=== PATIENT | male | born 1940 | race Caucasian/White ===

== ENCOUNTER 2020-05-01 18:11 | Emergency (ER) | payer MEDICARE, OTHER, SELFPAY ==
[2020-05-01 18:24] VITALS: BP 120/57; PULSE 86; RESP 17; TEMP 36.1; O2SAT 96; BMI 30.8
--- NOTE | 2020-05-01 18:31 | XR_ITS ---
EXAMINATION: XR CHEST CLINICAL INFORMATION: Cough. COMPARISON: Chest x-ray 10/22/2015 TECHNIQUE: Frontal portable view of the chest was obtained. 6:52 PM FINDINGS: Lungs are clear. No pulmonary vascular congestion. There is no pleural effusion. The heart size is normal. The cardiac and mediastinal contours are normal. There are multilevel degenerative changes of dorsal spine. There is degenerative change of the acromioclavicular joint with bone spurs superiorly at both the right and left shoulder. XR/XR chest 1V IMPRESSION: Unremarkable examination.
--- NOTE | 2020-05-01 19:13 | ED_ITS ---
HPI - URI/Sore Throat General Chief Complaint: Upper Respiratory Symptoms Stated Complaint: COUGH Time Seen by Provider: 05/01/20 18:19 Source: patient Mode of arrival: ambulatory Limitations: no limitations History of Present Illness HPI Narrative: patient presents to ED for coughing for 3 days and body aches. Patient denies any chest pain, shortness of breath, calf pain, or swelling of lower extremities. Patient states his grandson had symptoms 2 days ago and then resolved. MD elicited complaint: cough Related Data Previous Rx's Medication Instructions Recorded benzonatate [Tessalon Perles] 100 mg PO TID PRN #15 cap 05/01/20 Allergies Allergy/AdvReac Type Severity Reaction Status Date / Time crab Allergy Severe ANAPHYLAXIS Unverified 02/08/20 15:52 Review of Systems Constitutional: Constitutional: Reports as per HPI, Reports no additional constitutional complaints and Reports body ache(s) Eyes: Eyes: Reports as per HPI and Reports no additional eye complaints ENT: Reports system reviewed and no additional complaints, except as documented and Reports as per HPI Cardiovascular: Cardiovascular: Reports as per HPI, Reports no additional cardiovascular complaints, Denies chest pain, Denies chest pain at rest, Denies chest pain with activity, Denies dyspnea on exertion, Denies orthopnea and Denies paroxysmal nocturnal dyspnea Respiratory: Respiratory: Reports as per HPI, Reports no additional respiratory complaints, Reports cough and Denies dyspnea on exertion Gastrointestinal: Gastrointestinal: Reports as per HPI and Reports no additional gastrointestinal complaints Genitourinary: Genitourinary: Reports no additional male genitourinary complaints and Reports as per HPI Musculoskeletal: Musculoskeletal: Reports no additional musculoskeletal complaints and Reports as per HPI Neurologic: Reports system reviewed and no additional complaints, except as documented and Reports as per HPI Psychiatric: Psychiatric: Reports no additional psychiatric complaints and Reports as per HPI [facility] Social History Social History Alcohol intake: never Smoked in Last 30 Days: No Use of substances other than those prescribed or required for medical reasons: No Advance Directives: No Advance Directives Information Provided: No Physical Exam Vital Signs: Vital Signs: Last Vital Signs Temp 97 F 05/01/20 18:24 Pulse 86 05/01/20 18:24 Resp 17 05/01/20 18:24 BP 120/57 L 05/01/20 18:24 Pulse Ox 96 05/01/20 18:24 Body Mass Index 30.8 Const: General: cooperative, healthy appearing, comfortable, no acute distress, well developed, alert and awake Orientation/consciousness: patient oriented x3 HENMT: Head: Yes normal to inspection, Yes No palpable skull fracture present, Yes normocephalic and Yes atraumatic Eyes: General: appearance normal, both eyes and all related structures Neck: Neck: Yes normal visual inspection, Yes full ROM, Yes no lymphadenopathy, Yes no meningeal signs, Yes trachea midline, Yes supple and No tender Chest: Chest palpation & inspection: normal inspection of the chest, normal palpation of entire chest wall and no localized rib tenderness Resp: Effort & Inspection: normal respiratory effort and able to speak in complete sentences Auscultation: clear to auscultation bilaterally Cardio: Jugular venous distension: no JVD Heart sounds: S1 normal heart sound present and S2 normal heart sound present GI: Inspection: Yes normal to inspection and No abdominal wall ecchymosis Palpation (GI): Soft to palpation, not firm, nontender, no guarding and not ri gid : General: No CVA tenderness and Yes no CVA tenderness Back/Spine/Pelvis: Back: no CVA tenderness, No CVA tenderness and No back tenderness Skin: General skin exam: no rashes or lesions noted Neuro: General: patient oriented x3, gait normal, tone normal, no meningeal signs and CN's II-XI intact bilaterally Cranial nerves: Yes CN's II-XII intact bilaterally Extrem: Other: Negative for any swelling, pitting edema, calf pain, or redness. Pulses are intact. General: Yes normal to inspection and Yes full ROM Psych: Appearance: grossly normal, well kempt and not disheveled Course Course Course Narrative: History physical exam indicate URI. Patient will be swabbed for COVID-19 and had chest x-ray done. Reevaluation(s) Reevaluation #1: Chest x-ray negative for pneumonia. Patient educated on self-isolation. Patient is safe to be discharged Time: 19:18 MDM - URI/Sore Throat MDM Narrative Medical decision making narrative: URI Discharge Plan Discharge Clinical Impression: Upper respiratory infection Patient Disposition: Home, Self-Care Instructions: Upper Respiratory Infection (ED) Additional Instructions: return to ED for any chest pain, shortness of breath, swelling of lower extremities, weakness, coughing up blood, or any other concerning symptoms. Recommend 14 days self-isolation if COVID test come back positive. Prescriptions: New benzonatate [Tessalon Perles] 100 mg capsule 100 mg PO TID PRN (Reason: cough) Qty: 15 RF: 0 Referrals: Mihir Mccall MD [Primary Care Provider] - 2 days ( URI. Chest x-ray normal. COVID testing pending) Interventions: ED Discharge Assessment Last Done: 05/01/20 19:29 Discharge Date/Time: 05/01/20 19:38 Print Language: Wallisian
== END 2020-05-01 19:38 | disposition home or self-care (01) ==
PROVIDERS: Physician Assistant; Emergency Provider Emergency Medicine; PCP Internal Medicine
DX: J06.9 Acute upper respiratory infection, unspecified (principal); Z20.828 Contact with and (suspected) exposure to other viral communicable diseases
CPT/HCPCS: 71045; 99283; 99284; U0003

== ENCOUNTER 2020-07-02 07:29 | Outpatient (REF) | payer MEDICARE, OTHER, SELFPAY ==
[2020-07-02 11:38] LABS: Estimated Average Glucose 166 mg/dL; Hemoglobin A1c % 7.4 %
[2020-07-02 12:03] LABS: Glucose Fasting 161 mg/dL (60-99)
== END 2020-07-02 07:30 | disposition home or self-care (01) ==
LOC: HO.HMGCLDS 07:29
PROVIDERS: PCP Internal Medicine; Visit Provider Internal Medicine
DX: E11.9 Type 2 diabetes mellitus without complications (principal)
CPT/HCPCS: 36415; 82947; 83036

== ENCOUNTER 2020-08-02 10:06 | Outpatient (REF) | payer SELFPAY | END 2020-08-02 10:07 | disposition home or self-care (01) | LOC: HO.HAP 10:06 | PROVIDERS: Visit Provider Internal Medicine | DX: Z46.1 Encounter for fitting and adjustment of hearing aid (principal); H90.3 Sensorineural hearing loss, bilateral | CPT/HCPCS: 99499 ==

== ENCOUNTER 2020-09-23 08:55 | Emergency (ER) | payer MEDICARE, OTHER, SELFPAY ==
[2020-09-23 08:59] VITALS: BP 136/53; PULSE 82; RESP 16; TEMP 36.1; O2SAT 98; BMI 29.4
--- NOTE | 2020-09-23 10:25 | ED_ITS ---
HPI - General Adult General Chief complaint: Extremity Problem Stated complaint: hand numbness Time Seen by Provider: 09/23/20 10:23 Source: patient and family (Daughter) Mode of arrival: ambulatory Limitations: no limitations History of Present Illness HPI narrative: 79-year-old male came in for evaluation of bilateral hand numbness. Started on the left hand about 3 weeks ago with numbness of the hand usually in the morning time then as day goes on improve, woke up this morning with bilateral hand numbness which is improving, patient reportedly electrical shooting sensation to both arms and shoulder and both sides of the neck if he hyperextends both wrists. Patient declined using repetitive movement of the wrist, no strenuous activity recently. No chest pain. Related Data Previous Rx's Medication Instructions Recorded benzonatate [Tessalon Perles] 100 mg PO TID PRN #15 cap 05/01/20 Allergies Allergy/AdvReac Type Severity Reaction Status Date / Time crab Allergy Severe ANAPHYLAXIS Unverified 02/08/20 15:52 Review of Systems Review of Systems: All other systems are reviewed and are negative Constitutional: Reports as per HPI and Reports no additional constitutional complaints Eyes: Reports as per HPI and Reports no additional eye complaints Reports system reviewed and no additional complaints, except as documented Cardiovascular: Reports as per HPI and Reports no additional cardiovascular complaints Respiratory: Reports as per HPI and Reports no additional respiratory complaints Gastrointestinal: Reports as per HPI and Reports no additional gastrointestinal complaints Genitourinary: Reports no additional female genitourinary complaints Musculoskeletal: Reports no additional musculoskeletal complaints Skin/Breast: Reports system reviewed and no additional complaints, except as docu Psychiatric: Reports no additional psychiatric complaints Endocrine: Reports no additional endocrine complaints Hematologic/Lymphatic: Reports no additional hematologic/lymphatic complaints Allergic/Immunologic: Reports no additional allergic/immunologic complaints Reports system reviewed and no additional complaints, except as documented and Reports Abnormal speech present COUNT INCLUDES THE [facility] Social History Social History Alcohol intake: never Smoking Status: Never smoker Use of substances other than those prescribed or required for medical reasons: No Advance Directives: No Advance Directives Information Provided: No Physical Exam Vital Signs: Vital Signs: Last Vital Signs Temp 97.0 F 09/23/20 08:59 Pulse 70 09/23/20 11:23 Resp 18 09/23/20 11:23 BP 117/64 09/23/20 11:23 Pulse Ox 98 09/23/20 11:23 Body Mass Index 29.4 Vital signs have been reviewed as appeared to be correct. Blood pressure normal. Heart rate normal. Respiration rate normal. Temperature normal. Oxygen saturation normal. Appearance: Alert. Oriented X3. No acute distress. Head: Normal external exam. Normocephalic. Atraumatic. No Marc signs noted. No raccoon eyes noted Eyes: PERRLA. EOMI. Conjunctiva and sclera normal. Eyelids normal. ENT: TM's Normal. Pharynx normal. Uvula midline. Moist mucous membranes. No trismus noted. No drooling noted. No muffled voice noted. Neck: Normal inspection. Neck supple. FROM. No adenopathy. Thyroid Normal. No meningeal signs. No neck mass noted. CVS: Normal heart rate and rhythm. Heart sound normal. No murmurs noted. Pulses normal throughout. Respiratory: No respiratory distress. Painless inspiration. Breath sounds normal. No wheezes/rales/rhonchi noted. Chest nontender. No accessory muscle usage noted or decreased air movement noted. Abdomen: Soft and nontender. Bowel sounds normal in all 4 quadrants. No distention noted. No organomegaly noted. No visible injury noted. Back: No CVA tenderness. Full range of motion noted. Skin: Skin warm and dry. Normal skin color. Normal skin turgor. No rashes/lesions/lacerations noted. Extremities: No lower extremity edema. Extremities exhibit normal range of motion. Extremities nontender. Tinel's test tapping on the median nerve while the wrist is hyper extended at 60 degree induce no tenderness, Phalen's test also was negative when wrist has been flex it for 60 seconds did not change his symptoms. Neuro: Oriented X 3. No motor deficit. No sensory deficit. Reflexes normal. NIH Stroke Scale Level of Consciousness: Alert Level of Consciousness Questions: Answers both questions correctly Level of Consciousness Commands: Performs both tasks correctly Best Gaze: Normal Visual: No visual loss Facial Palsy: Normal Motor Arm (Right): No drift Motor Arm (Left): No drift Motor Leg (Right): No drift Motor Leg (Left): No drift Limb Ataxia: Absent Sensory: Normal Best Language: No aphasia Dysarthia: Normal Extinction and Inattention: No abnormality Score: 0 Course Course Course Narrative: 79-year-old male came in with bilateral hand numbness, exam was consistent with cervical radiculopathy, patient eloped from the emergency department before my full evaluation, patient have an appointment with his surgical specialty center doctor tomorrow. Medical Decision Making Lab Data Lab results reviewed: Yes I reviewed the patient's lab results. Result diagrams: 09/23/20 11:41 09/23/20 11:41 Labs: Lab Results 09/23/20 09/23/20 Range/Units 11:41 11:41 WBC 7.6 (4.8-10.8) X10*3/uL RBC 5.05 (4.60-5.80) X10*6/uL Hgb 15.2 (14.0-18.0) g/dl Hct 44.5 (42-52) % MCV 88.1 (80-98) fL MCH 30.1 (27.0-33.0) pg MCHC 34.2 (31.0-36.0) g/dl RDW 12.9 (11.0-16.0) % Plt Count 139 L (160-400) X10*3/uL MPV 12.2 (9.4-12.4) fL Immature Gran % (Auto) 0.3 (0.0-0.4) % Neut % (Auto) 61.4 (45-73) % Lymph % (Auto) 25.7 (20-40) % Bollinger % (Auto) 8.9 (2-11) % Eos % (Auto) 2.9 (0-4) % Baso % (Auto) 0.8 (0-2) % Lymph # (Auto) 1.9 (1.2-4.9) X10*3/uL Bollinger # (Auto) 0.7 (0.1-1.2) X10*3/uL Eos # (Auto) 0.2 (0.0-0.4) X10*3/uL Baso # (Auto) 0.1 (0.0-0.2) X10*3/uL Abs Immat Gran (auto) 0.02 (0.00-0.03) X10*3/uL Absolute Neuts (auto) 4.7 (2.0-8.3) X10*3/uL Absolute Nucleated RBC 0.000 (0.0-0.012) X10*3/uL Nucleated RBC % (auto) 0.0 (0.0-0.2) /100WBC Sodium 138 (135-145) mmol/L Potassium 4.5 (3.3-5.1) mmol/L Chloride 101 (96-108) mmol/L Carbon Dioxide 31 H (22-29) mmol/L Anion Gap 11 L (12-20) BUN 28 H (9-16) mg/dL Creatinine 1.00 (0.5-1.4) mg/dL Estim Creat Clear Calc 69.7 Estimated GFR > 60 Fasting Glucose 186 H (60-99) mg/dL Calcium 10.0 (8.4-10.2) mg/dL Total Bilirubin 1.2 H (0.0-1.0) mg/dL AST 19 (5-37) U/L ALT 15 (0-40) U/L Alkaline Phosphatase 62 (39-117) U/L Total Protein 6.4 L (6.5-8.0) g/dL Albumin 4.0 (3.5-5.0) g/dL Discharge Plan Discharge Clinical Impression: Paresthesia Patient Disposition: Elopement Prescriptions: No Action benzonatate [Tessalon Perlgilberto] 100 mg capsule 100 mg PO TID PRN (Reason: cough) Qty: 15 RF: 0
[2020-09-23 11:23] VITALS: BP 117/64; PULSE 70; RESP 18; O2SAT 98
--- NOTE | 2020-09-23 11:25 | PC.NURSE ---
no unilat neuro deficits. pt describing shocking sensation BUE when pushing or exerting force. denies headaches. a fib on monitor. skin pwd. liliya CP/SOB. had covid april.
[2020-09-23 11:45] LABS: MANUAL DIFF FLAG NO
[2020-09-23 12:02] LABS: Basophils Absolute Auto 0.1 X10*3/uL (0.0-0.2); Basophils Percent Auto 0.8 % (0-2); Eosinophils Absolute Auto 0.2 X10*3/uL (0.0-0.4); Eosinophils Percent Auto 2.9 % (0-4); Hematocrit 44.5 % (42-52); Hemoglobin 15.2 g/dl (14.0-18.0); Imm Gran Abs Auto 0.02 X10*3/uL (0.00-0.03); Imm Gran Pct Auto 0.3 % (0.0-0.4); Lymphocytes Absolute Auto 1.9 X10*3/uL (1.2-4.9); Lymphocytes Percent Auto 25.7 % (20-40); Mean Corpuscular HGB Conc 34.2 g/dl (31.0-36.0); Mean Corpuscular Hemoglobin 30.1 pg (27.0-33.0); Mean Corpuscular Volume 88.1 fL (80-98); Mean Platelet Volume 12.2 fL (9.4-12.4); Monocytes Absolute Auto 0.7 X10*3/uL (0.1-1.2); Monocytes Percent Auto 8.9 % (2-11); Neutrophils Absolute Auto 4.7 X10*3/uL (2.0-8.3); Neutrophils Percent Auto 61.4 % (45-73); Platelet Count 139 X10*3/uL (160-400); Red Blood Count 5.05 X10*6/uL (4.60-5.80); Red Cell Distribution Width 12.9 % (11.0-16.0); White Blood Count 7.6 X10*3/uL (4.8-10.8)
[2020-09-23 12:14] LABS: Alanine Aminotransferase 15 U/L (0-40); Alkaline Phosphatase 62 U/L (39-117); Anion Gap 11 (12-20); Aspartate Amino Transferase 19 U/L (5-37); Bilirubin Total 1.2 mg/dL (0.0-1.0); Blood Urea Nitrogen 28 mg/dL (9-16); Carbon Dioxide 31 mmol/L (22-29); Chloride 101 mmol/L (96-108); Creatinine Clr Calc Pharmacy 69.7; Estimated Glomerular Filt Rate > 60; Glucose Fasting 186 mg/dL (60-99); Potassium 4.5 mmol/L (3.3-5.1); Sodium 138 mmol/L (135-145); Total Protein 6.4 g/dL (6.5-8.0)
[2020-09-23 13:45] LABS: Erythrocyte Sedimentation Rate 2 MM/HR (0-15)
== END 2020-09-23 13:00 | disposition left against medical advice (07) ==
PROVIDERS: Emergency Provider Emergency Medicine; PCP Internal Medicine
DX: R20.2 Paresthesia of skin (principal); Z86.16 Personal history of COVID-19
CPT/HCPCS: 36415; 80053; 85025; 85652; 99283; 99284

== ENCOUNTER 2020-09-27 19:35 | Outpatient (REF) | payer MEDICARE, OTHER, SELFPAY ==
--- NOTE | ~2020-09-27 | MR_ITS ---
MR CERVICAL SPINE WITHOUT CONTRAST CLINICAL INFORMATION: Cervical disc disorder, C5-C6 level with radiculopathy. COMPARISON: None available. TECHNIQUE: MRI of the cervical spine was obtained using routine sequences without contrast. FINDINGS: Straightening of the cervical lordosis. Mild anterior subluxation of C4 on C5 and C7 on T1. There is moderate disc volume loss at C6-C7. Multilevel endplate osteophytes. There is bone marrow edema within the left C4 and C5 facets that is most likely degenerative or inflammatory. No additional bone marrow edema. No acute fractures. Craniocervical junction is unremarkable. The cervical arterial flow voids are maintained. No significant extraspinal soft tissue findings. C2-C3: Slight annular disc bulge. Advanced left facet arthropathy result in mild left foraminal encroachment. C3-C4: Broad-based right paracentral disc protrusion and ligamentum flavum thickening result in moderate to severe right-sided central canal stenosis. Advanced uncovertebral joint hypertrophy and hypertrophic facet arthropathy result in severe right-sided foraminal stenosis. C4-C5: Broad-based central disc protrusion and ligamentum flavum thickening result in severe central canal stenosis and significant compression of the cervical spinal cord. Possible mild intramedullary T2 signal changes within the cord at this level. C5-C6: Disc osteophyte and ligamentum flavum thickening result in mild narrowing of the central canal. multifactorial degenerative changes result in severe right-sided foraminal stenosis. C6-C7: Disc osteophyte mildly narrows the central canal. Uncovertebral joint hypertrophy and hypertrophic facet arthropathy result in severe bilateral foraminal stenosis. C7-T1: Disc contour is normal. No central canal stenosis and no foraminal stenosis. MR/MR cervical spine wo con IMPRESSION: - At C4-C5, a broad-based central disc protrusion and multifactorial degenerative changes result in severe central canal stenosis, significant compression of the cervical spinal cord, and severe bilateral foraminal stenosis. Possible mild intramedullary T2 signal changes within the cord at this level. - At C3-C4, advanced multifactorial degenerative changes result in moderate to severe right-sided central canal stenosis, mass effect on the right cord, and severe right-sided foraminal stenosis. - Advanced spondylitic changes also result in severe right C5-C6 and severe bilateral C6-C7 foraminal stenosis. Covering provider paged with these findings at 11:02 AM on 09/29/2020.
== END 2020-09-27 19:36 | disposition home or self-care (01) ==
LOC: HO.MRI 19:35
PROVIDERS: Visit Provider Internal Medicine
DX: M50.122 Cervical disc disorder at C5-C6 level with radiculopathy (principal)
CPT/HCPCS: 72141

== ENCOUNTER 2021-07-08 07:32 | Outpatient (REF) | payer MEDICARE, OTHER, SELFPAY ==
[2021-07-08 10:48] LABS: Estimated Average Glucose 192 mg/dL; Hemoglobin A1c % 8.3 %
[2021-07-08 11:05] LABS: Alanine Aminotransferase 17 U/L (0-40); Albumin Level 4.1 g/dL (3.5-5.0); Alkaline Phosphatase 70 U/L (39-117); Aspartate Amino Transferase 18 U/L (5-37); Bilirubin Direct 0.4 mg/dL (0.0-0.5); Bilirubin Total 1.1 mg/dL (0.0-1.0); Cholesterol 128 mg/dL; Glucose Fasting 215 mg/dL (60-99); HDL Cholesterol 46 mg/dL; LDL Cholesterol Calculated 58 mg/dl; Total Protein 6.5 g/dL (6.5-8.0); Triglycerides 120 mg/dL
== END 2021-07-08 07:33 | disposition home or self-care (01) ==
LOC: HO.10HDL 07:32
PROVIDERS: Visit Provider Internal Medicine
DX: E11.9 Type 2 diabetes mellitus without complications (principal); E78.00 Pure hypercholesterolemia, unspecified
CPT/HCPCS: 36415; 80061; 80076; 82947; 83036

== ENCOUNTER 2022-02-26 10:54 | Outpatient (REF) | payer MEDICARE, OTHER, SELFPAY ==
[2022-02-26 11:57] LABS: Bacteria Urine 2+ (None Seen); Calcium Oxalate Crystals Urine Present; Granular Casts Urine Present; Hyaline Casts Urine 0-2 /LPF (0-2); RBC Urine >20 /HPF (0-2); WBC Urine 0-5 /HPF (0-5)
[2022-02-26 12:03] LABS: Appearance Urine Turbid; Color Urine Red; Glucose Urine UA 100 mg/dL (Negative); Leukocyte Esterase Urine Moderate (2+) (Negative); Nitrite Urine Positive (Negative); UMIC TRIGGER UA YES; Urine Blood Moderate (2+) (Negative); Urine Ketones Negative (Negative); Urine Protein 100 (2+) mg/dL (Neg-Trace)
== END 2022-02-26 10:55 | disposition home or self-care (01) ==
LOC: HO.LNP 10:54
PROVIDERS: Visit Provider Internal Medicine
DX: R31.0 Gross hematuria (principal)
CPT/HCPCS: 81001; 87086

== ENCOUNTER 2022-03-09 15:54 | Outpatient (REF) | payer MEDICARE, OTHER, SELFPAY ==
[2022-03-09 16:07] LABS: Anion Gap 19 (12-20); Carbon Dioxide 23 mmol/L (22-29); Chloride 100 mmol/L (96-108); Glucose Random 213 mg/dL (60-115); Potassium 4.9 mmol/L (3.3-5.1); Sodium 137 mmol/L (135-145)
[2022-03-09 16:29] LABS: Digoxin 0.4 ng/mL (0.8-2.0)
== END 2022-03-09 15:55 | disposition home or self-care (01) ==
LOC: HO.LNP 15:54
PROVIDERS: PCP Internal Medicine; Visit Provider Internal Medicine
DX: Z01.818 Encounter for other preprocedural examination (principal); I48.19 Other persistent atrial fibrillation; I50.9 Heart failure, unspecified; Z79.899 Other long term (current) drug therapy
CPT/HCPCS: 80051; 80162; 82947

== ENCOUNTER 2022-04-03 15:10 | Outpatient (REF) | payer MEDICARE, OTHER, SELFPAY ==
--- NOTE | ~2022-04-03 | CT_ITS ---
EXAMINATION: CT CHEST WITHOUT CONTRAST CLINICAL INFORMATION: Pulmonary nodules. COMPARISON: Chest x-ray 05/01/2020. CT chest 06/28/2012. TECHNIQUE: Multidetector volumetric CT imaging of the chest was done. Axial MIP volume rendering provided. Sagittal and coronal reformatted images were obtained. This CT examination was performed using dose optimization techniques as appropriate, variously including the following: *Automated exposure control *Adjustment of mA and/or kV according to patient size (this includes techniques or standardized protocols for targeted exams where dose is matched to indication/reason for exam; i.e. extremities or head) *Use of iterative reconstruction technique DLP: 198 mGy-cm. FINDINGS: PAPER DELIVERER: Well-expanded lungs. LUNGS: The lungs are well expanded with patchy subpleural ground-glass opacity and subpleural reticulation left upper lobe anterior segment. There mild subpleural reticulation is also visualized in both lower lobes. There is mild loss of left lung volume with ipsilateral mediastinal shift. No acute consolidation, mass or pulmonary nodule seen. MEDIASTINUM: Thyroid lobes are symmetric and normal. The central trachea and the bronchi are widely patent. The heart size and the great vessels are normal caliber. No pericardial effusion seen. CORONARY ARTERY CALCIFICATION: There are mild coronary artery calcifications. PLEURA: There is no pleural effusion. No pleural mass or thickening. AXILLA: No lymphadenopathy. UPPER ABDOMEN: Visualized liver, spleen, pancreas and bilateral adrenal glands are unremarkable. There is a radiopaque foreign body in the upper abdomen which appears to be a staple and intraluminal/duodenum. The gallbladder is unremarkable. OSSEOUS STRUCTURES: Mild ventral spondylosis. No aggressive lytic or sclerotic process. CT/CT chest wo IV con IMPRESSION: 1. No acute consolidation, mass or pulmonary nodule. 2. There is mild loss of left lung volume with ipsilateral mediastinal shift. 3. There is a radiopaque foreign body in the upper abdomen appears to be a staple or intraluminal/duodenum. 4. The lungs are well expanded with patchy subpleural ground-glass opacity and subpleural reticulation left upper lobe anterior segment. Fleischner guidelines were followed.
== END 2022-04-03 15:11 | disposition home or self-care (01) ==
LOC: HO.CT 15:10
PROVIDERS: Visit Provider Internal Medicine
DX: R91.8 Other nonspecific abnormal finding of lung field (principal)
CPT/HCPCS: 71250

== ENCOUNTER 2022-07-29 16:13 | Outpatient (REF) | payer SELFPAY ==
--- NOTE | 2022-07-30 13:53 | MHC.AU.HA3 ---
Hearing Instrument Follow-Up- Binaural Date of Visit: 07/30/22 Right Ear: Zenon, Model, Color, Serial Number: Britni [id number] SN: [id number] Color: Silver Weaver Multi Punch Operator Repair Warranty: 03/16/2020 Multi Punch Operator Loss and Damage Warranty: 03/16/2020 Battery Size: 312 Analytical Lead/Slim Tube: #2 slim tube Earmold/Dome/CShell/SlimTip:Small open dome Dispensed By: [facility] Date of Fittin12/23/2016 Left Ear: Zenon, , Color, Serial Number: Britni [id number] SN: [id number] Color: Silver Weaver Multi Punch Operator Repair Warranty: 03/16/2020 Multi Punch Operator Loss and Damage Warranty: 03/16/2020 Battery Size: 312 Analytical Lead/Slim Tube: #2 slim tube Earmold/Dome/CShell/SlimTip: Small open dome Dispensed By: [facility] Date of Fittin12/23/2016 Follow-Up Summary: Adonay dropped off both hearing aids yesterday reporting intermittency issues. Slim tubes discolored and domes and tubes partially blocked with wax. Cleaned hearing aids. Vacuumed microphones. Replaced slim tubes and wax guards. A listening check demonstrated that the hearing aids are in good working order. Recommendations: Hearing instrument maintenance in 6 months, or sooner if needed. Please contact our clinic with any questions or concerns. Signature: Provider: Pepe Hermosillo, [facility]
== END 2022-07-29 16:14 | disposition home or self-care (01) ==
LOC: HO.HAP 16:13
PROVIDERS: Visit Provider Internal Medicine
DX: Z13.89 Encounter for screening for other disorder (principal)

== ENCOUNTER 2022-08-05 13:28 | Outpatient (REF) | payer SELFPAY | END 2022-08-05 13:29 | disposition home or self-care (01) | LOC: HO.HAP 13:28 | PROVIDERS: Visit Provider Internal Medicine | DX: Z13.89 Encounter for screening for other disorder (principal) ==

== ENCOUNTER 2022-12-04 10:55 | Outpatient (REF) | payer MEDICARE, OTHER, SELFPAY ==
[2022-12-04 11:52] LABS: Blood Urea Nitrogen 24 mg/dL (9-16); Estimated Glomerular Filt Rate > 60; Potassium 4.5 mmol/L (3.3-5.1)
== END 2022-12-04 10:56 | disposition home or self-care (01) ==
LOC: HO.LNP 10:55
PROVIDERS: Visit Provider Internal Medicine
DX: R79.9 Abnormal finding of blood chemistry, unspecified (principal)
CPT/HCPCS: 82565; 84132; 84520

== ENCOUNTER 2023-01-26 11:10 | Outpatient (REF) | payer SELFPAY ==
[2023-01-26 12:21] LABS: Blood Urea Nitrogen 29 mg/dL (9-16); Estimated Glomerular Filt Rate > 60; Potassium 4.2 mmol/L (3.3-5.1)
== END 2023-01-26 11:11 | disposition home or self-care (01) ==
LOC: HO.LNP 11:10
PROVIDERS: Visit Provider Internal Medicine
DX: R79.9 Abnormal finding of blood chemistry, unspecified (principal)
CPT/HCPCS: 82565; 84132; 84520

== ENCOUNTER 2024-01-25 11:56 | Outpatient (REF) | payer SELFPAY ==
[2024-01-25 12:25] LABS: Estimated Average Glucose 140 mg/dL; Hemoglobin A1c % 6.5 % (<6.0)
[2024-01-25 12:32] LABS: Alanine Aminotransferase 101 U/L (0-40); Albumin Level 4.3 g/dL (3.5-5.0); Alkaline Phosphatase 146 U/L (39-117); Aspartate Amino Transferase 82 U/L (5-37); Bilirubin Direct 0.3 mg/dL (0.0-0.5); Bilirubin Total 0.9 mg/dL (0.0-1.0); Cholesterol 127 mg/dL (<200); Glucose Fasting 144 mg/dL (60-99); HDL Cholesterol 49 mg/dL (>40); LDL Cholesterol Calculated 55 mg/dL (<100); Total Protein 7.9 g/dL (6.5-8.0); Triglycerides 119 mg/dL (<150)
[2024-01-25 13:48] LABS: Reflex LDLD? No
== END 2024-01-25 11:57 | disposition home or self-care (01) ==
LOC: HO.LNP 11:56
PROVIDERS: Visit Provider Internal Medicine
DX: E11.9 Type 2 diabetes mellitus without complications (principal); E78.00 Pure hypercholesterolemia, unspecified
CPT/HCPCS: 80061; 80076; 82947; 83036

== ENCOUNTER 2024-01-27 15:00 | Outpatient (REF) | payer SELFPAY | END 2024-01-27 15:01 | disposition home or self-care (01) | LOC: HO.HAP 15:00 | PROVIDERS: Visit Provider Internal Medicine | DX: Z46.1 Encounter for fitting and adjustment of hearing aid (principal); H90.5 Unspecified sensorineural hearing loss | CPT/HCPCS: V5267 ==

== ENCOUNTER 2024-02-14 07:28 | Outpatient (REF) | payer MEDICARE, OTHER, SELFPAY ==
--- NOTE | ~2024-02-14 | CT_ITS ---
EXAMINATION: CT CHEST WITHOUT CONTRAST CLINICAL INFORMATION: Pulmonary fibrosis COMPARISON: 04/03/2022 TECHNIQUE: Multidetector volumetric CT imaging of the chest was done. Axial MIP volume rendering provided. Sagittal and coronal reformatted images were obtained. This CT examination was performed using dose optimization techniques as appropriate, variously including the following: *Automated exposure control *Adjustment of mA and/or kV according to patient size (this includes techniques or standardized protocols for targeted exams where dose is matched to indication/reason for exam; i.e. extremities or head) *Use of iterative reconstruction technique DLP: 206 mGy-cm FINDINGS: LUNGS: Mild emphysematous changes are present throughout the lungs along with mild bronchial thickening. There is subpleural reticulation seen involving most lobes. There is some minimal honeycombing seen in the lingula anteriorly. These changes appear slightly more conspicuous than they did on 04/03/2022. No suspicious lung masses are seen. MEDIASTINUM: The mediastinum is normal. CORONARY ARTERY CALCIFICATION: Extensive PLEURA: There is no pleural effusion. No pleural mass or thickening. AXILLA: No lymphadenopathy. UPPER ABDOMEN: There are a few calcified layering gallstones present OSSEOUS STRUCTURES: Unremarkable. CT/CT chest wo IV con IMPRESSION: 1. Mild emphysematous changes are present with subpleural reticulation and some minimal honeycombing. Findings are suggestive of early pulmonary fibrosis. These findings appear slightly more conspicuous than they did on 04/03/2022. 2. Incidental note made of cholelithiasis. Fleischner guidelines were followed. Electronically signed by: Galo Renae MD 02/14/2024 12:08 PM EDT
== END 2024-02-14 07:29 | disposition home or self-care (01) ==
LOC: HO.CT 07:28
PROVIDERS: PCP Internal Medicine; Visit Provider Internal Medicine
DX: J84.10 Pulmonary fibrosis, unspecified (principal)
CPT/HCPCS: 71250

== ENCOUNTER 2024-03-16 11:49 | Outpatient (REF) | payer MEDICARE, OTHER, SELFPAY ==
[2024-03-16 12:10] LABS: Alanine Aminotransferase 18 U/L (0-40); Albumin Level 3.9 g/dL (3.5-5.0); Alkaline Phosphatase 87 U/L (39-117); Aspartate Amino Transferase 30 U/L (5-37); Bilirubin Direct 0.3 mg/dL (0.0-0.5); Bilirubin Total 0.7 mg/dL (0.0-1.0); Total Protein 6.8 g/dL (6.5-8.0)
== END 2024-03-16 11:50 | disposition home or self-care (01) ==
LOC: HO.LNP 11:49
PROVIDERS: Visit Provider Internal Medicine
DX: E11.9 Type 2 diabetes mellitus without complications (principal)
CPT/HCPCS: 80076

== ENCOUNTER 2024-12-21 07:43 | Outpatient (REF) | payer MEDICARE, OTHER, SELFPAY ==
--- OUTSIDE RECORDS SUMMARY | 2024-12-21 04:00 | XMS_ITS ---
Author Organization iMhir Mccall MD Address [address] [place] [phone] Care Team Providers Care Education Consultant Name Role Phone Mihir Mccall Primary Care Provider REASON FOR VISIT FASTING LIPID, LIVER PANEL Encounters Encounter Location Date Provider Diagnosis Mihir Mccall MD [address] [place] [phone] 12/21/2024 Mihir Mccall Type 2 diabetes julian itus without complication E11.9 and Pure hypercholesterolemia E78.00 Assessments Encounter Date Diagnosis (ICD Code) Assessment Notes Treatment Notes Treatment Clinical Notes Section Notes 12/21/2024 Type 2 diabetes julian itus without complication (ICD-10 - E11.9) 12/21/2024 Pure hypercholesterolemia (ICD-10 - E78.00) Plan Of Treatment Pending Test Test Name Order Date Liver Panel 12/21/2024 Glucose Fasting 12/21/2024 Lipid Panel with Reflex 12/21/2024 Hemoglobin A1c 12/21/2024 Next Appt Details Provider Name:Mihir Phillips ier, 01/04/2025 10:15:00 AM, [address] [facility], [address], [place], [place], [phone], Progress Notes * MAGEDAdonay DDOB:[birth year] (84 yo M)Acc No.[id number]:12/21/2024 Progress Note Patient: Adonay MATA Provider: Iris Mccall MD :1940 A ge:84 Y S ex:Male Date:12/21/2024 Address:[facility] [place], [facility] Subjective: * Chief Complaints: * 1 . FASTING LIPID, LIVER PANEL. * Medical History: Objective: * Vitals: Assessment: * Assessment: 1. T ype 2 diabetes mellitus without complication - E11.9 (Primary) 2 . P ure hypercholesterolemia - E78.00 Plan: * Treatment: 2. P ure hypercholesterolemia L AB: Liver Panel L AB: Glucose Fasting L AB: Lipid Panel with Reflex L AB: Hemoglobin A1c * * The named appointment provid er may or may not be the originator of this progress note, and it is not deemed complete until electronically signed by the appointment provider. Sign off status: Pending * Provider: Iris Mccall MD Date: 0 12/21/2024 Generated for Erasto loya/Anatoliy/Cinthyasmitting on: 0 12/21/2024 07:46 AM EDT
--- OUTSIDE RECORDS SUMMARY | 2024-12-21 07:46 | XMS_ITS | Clinical Summary ---
Author Organization [address] [place] [address] [place] [phone] Phone Care Team Providers Care Pharmacy Tech Name Role Phone Mihir Mccall MD Primary Care Provider [phone] Allergies Active Allergy Reactions Criticality Noted Date Comments Rosuvastatin Pain 06/06/2020 Simvastatin Pain 06/06/2020 Medications atorvastatin (LIPITOR) 40 mg tablet Take 1 tablet (40 mg total) by mouth 1 (one) time each day. Active digoxin (LANOXIN) 125 mcg (0.125 mg) tablet Take 1 tablet (125 mcg total) by mouth 1 (one) time each day. 03/06/2022 Active Eliquis 5 mg tablet Take 1 tablet (5 mg total) by mouth 2 (two) times a day. 02/11/2023 Active metFORMIN (GLUCOPHAGE) 500 mg tablet Take 2 tablets (1,000 mg total) by mouth 2 (two) times a day with meals. Active sildenafiL (VIAGRA) 100 mg tablet Take 1 tablet (100 mg total) by mouth if needed. Active SITagliptin phosphate (Januvia) 50 mg tablet Take 1 tablet (50 mg total) by mouth 1 (one) time each day. Active tamsulosin (FLOMAX) 0.4 mg 24 hr capsule Take 1 capsule (0.4 mg total) by mouth 1 (one) time each day. Take 30 mins after same meal every day Active pantoprazole (PROTONIX) 40 mg EC tablet Take 1 tablet (40 mg total) by mouth 2 (two) times a day. Do not crush, chew, or split. Active furosemide (LASIX) 20 mg tablet Take 1 tablet (20 mg total) by mouth 1 (one) time each day. Active metoprolol succinate (TOPROL-XL) 50 mg 24 hr tablet Take 1 tablet (50 mg total) by mouth 2 (two) times a day. 90 tablet 3 05/05/2024 Active Active Problems Problem Noted Date Diagnosed Date Lumbar stenosis with neurogenic claudication 05/2021 Overview (03/04/2024): Last Assessment & Plan: Patient is 3 weeks s/p L2-3, L4-5 fusion extensions, was autofused at L3-4, has L2-5 pedicle screws. He does feel that he see some improvement in his walking, feels he still is walking slowly. He is experiencing some low back pain, thinks it is more surgical pain in his preop typical back pain. He has chronic left dorsiflexion weakness, otherwise not noting any specific weakness. He is using minimal narcotics, still at times needs oxycodone. Denies fever, wound drainage, sweats chills. Patient has a follow-up appointment with Dr. Garg in 6 weeks with lumbar spine x-rays. All postop questions answered. He will call with any concerns or questions prior to his next visit. Hypertension 06/23/2021 Assessment & Plan (05/05/2024 9:58 AM EST): Blood pressure is well-controlled on current regimen of beta-lizzette and diuretic. Continue current treatment plan Arthritis, rheumatoid ([facility] V24, [facility] V28) 06/06/2020 Claudication ([facility] V24) 06/06/2020 Ischemic cardiomyopathy 06/06/2020 Overview (05/05/2024): Lateral STEMI 09/2016 with thrombectomy to LAD and LCX Possibly embolic from afib LVEF 35-40%, up to 45% with medical therapy in 06/2020 Assessment & Plan (05/05/2024 9:58 AM EST): Currently, the patient is doing well. He is stable from a cardiorespiratory standpoint. He is able to perform all of his typical activities, and in fact, is back to work part-time. He is off of his spironolactone, possibly due to a refill issue. Regardless, since he is doing well, we will start by updating his echocardiogram. If his LVEF has fallen, we can make a consideration for YOLIS/ARB/ARNI and/or resuming MRA. SGLT2 also remains an option for him. He will update me if he has any changes in his current condition. He does report urinary frequency and it is due at least in part to his furosemide. Possible use of ARNI and/or SGLT2 may help with this. Historically, he does not appear to be on YOLIS/ARB/ARNI due to his renal function, but it looked good on last check. Non morbid obesity due to excess calories 2020 Old OR (myocardial infarction) 06/06/2020 Persistent atrial fibrillation ([facility] V24, [facility] V28) 06/06/2020 Overview (05/05/2024): anticoagulated with apixaban Rate control strategy with BB and digoxin Assessment & Plan (05/05/2024 9:58 AM EST): Is well-controlled on current doses of beta-lizzette and digoxin. Update digoxin level at his convenience. Lab slip was given to the patient Premature ventricular contractions 06/06/2020 Primary insomnia 06/06/2020 Prostatism 06/06/2020 Pure hypercholesterolemia 06/06/2020 Assessment & Plan (05/05/2024 9:58 AM EST): Well-controlled lipid profile from 11/2021. Continue statin at current dose. Thrombocytopenia, unspecified ([facility] V24) 05/24 Type II diabetes mellitus ([facility] V24, [facility] V28) 06/06/2020 Resolved Problems Problem Noted Date Diagnosed Date Resolved Date Cardiomyopathy ([facility] V24, [facility] V28) 01/01/2023 05/05/2024 Encounters Date Type Department Care Team Description [address] [facility] [address] [place] [address] Mihir Mccall MD Medical Records [address] [facility] - [address] [place] [address] Kendra Bowers NP records from Last 3 Months Immunizations Name Administration Dates Next Due Influenza trivalent, 0.5mL, preservative free (Fluarix; FluLaval; Fluzone) ages 6mo and older (Afluria) 3 years and older 03/25/2020,01/24/2019,04/01/2018,02/09,02/24/2016 Pneumococcal polysaccharide 23 valent (Pneumovax 23) 2yo and older 01/04/2018 Surgical History Surgery Date Site/Laterality Comments CORONARY STENT PLACEMENT 06/06/2020 Medical History Medical History Date Comments Cardiomyopathy ([facility] V24, [facility] V28) 2022 Hypertension 06/23/2021 Diabetes mellitus ([facility] V24, [facility] V28) Type 2 Pure hypercholesterolemia 06/06/2020 PVC (premature ventricular contraction) 06/06/19 21 Atrial fibrillation ([facility] V24, [facility] V28) 0 06/06/2020 Claudication ([facility] V24) 06/06/2020 Old OR (myocardial infarction) 06/06/2020 Family History Medical History Relation Name Comments Alzheimer's disease Father Diabetes Mother Relation Name Status Comments Father Mother Social History Tobacco Use Types Packs/Day Years Used Date Smoking Tobacco: Former Cigarettes Q uit: 1959 Passive Smoke Exposure: Never Smokeless Tobacco: Never Tobacco Cessation:Counseling Given: Not Answered Alcohol Use Standard Drinks/Week Comments Not Currently 0 (1 standard drink = 0.6 oz pur e alcohol) Sex and Gender Information Value Date Recorded Sex Assigned at Not on file Legal Sex Male 5:54 PM EST Gender Identity Not on file Sexual Orientation Not on file Obstetrics History Last Filed Vital Signs Vital Sign Reading Time Taken Comments Blood Pressure 118/62 05/05/2024 8:38 AM EST Pulse 90 05/05/2024 8:38 AM EST Temperature - - Respiratory Rate - - Oxygen Saturation 96% 05/05/2024 8:38 AM EST Inhaled Oxygen Concentration - - Weight 85.7 kg (189 lb) 05/05/2024 8:38 AM EST Height 177.8 cm (5' 10 ) 05/05/2024 8:38 AM EST Body Mass Index 27.12 05/05/2024 8:38 AM EST Plan of Treatment Upcoming Encounters Date Type Department Care Team (Late st Contact Info) Description 01/17/2025 11:00 AM EDT Ancillary Procedure [facility] - [address] [place] [address] Health Maintenance Due Date Last Done Comments Diabetes: Annual Foot Exam 11[birth year]07/1950 Diabetes: Annual Retina Eye Exam 11/07/1950 DTaP,Tdap,and Td Vaccines (1 - Tdap) 1960 Zoster Vaccines (1 of 2) 11/07/1991 RSV Immunization Adult Patients (1 - 1-dose 75+ series) 2016 Falls Risk Assessment 05/02/2022 Medicare Annual Wellness Visit 05/02/2022 Social Influencers of Health Screening 05/02/2022 Diabetes: Annual Urine Albumin-Creatinine Ratio (uACR) 05/09/2022 Diabetes: Blood Sugar Control Test (HGBA1C) 05/09/2022 COVID-19 Vaccine ( season) 2024 08/09/2020, 07/18/2020 Depression Screening 05/24/2024 Diabetes: Annual GFR (Glomerular Filtration Rate) 12/14/2024 12/15/2023, 12/15/2023, 10/06/2018, Additional history exists Hypertension/CHF/CAD Annual BMP Blood Test 12/14/2024 12/15/2023, 12/15/2023, 10/06/2018, Additional history exists Influenza Vaccine (#1) 2025 , 02/02/2023, 02/19/2022, Additional history exists Cholesterol Screening (Lipid Panel) 12/12/2026 12/12/2021 Pneumococcal Vaccine: 50+ Years Completed 01/04/2018, 10/01/2016 HIB Vaccines Aged Out No longer eligi ble based on patient's age to complete this topic HPV Vaccines Aged Out No longer eligi ble based on patient's age to complete this topic Hepatitis A Vaccines Aged Out No long er eligible based on patient's age to complete this topic Hepatitis B Vaccines Aged Out No long er eligible based on patient's age to complete this topic IPV Vaccines Aged Out No longer eligi ble based on patient's age to complete this topic MMR Vaccines Aged Out No longer eligi ble based on patient's age to complete this topic Meningococcal ACWY Vaccine Aged Out N o longer eligible based on patient's age to complete this topic Meningococcal B Vaccine Aged Out No l onger eligible based on patient's age to complete this topic RSV Immunization Patients Under 20 months Aged Out No longer eligible based on patient's age to complete this topic Varicella Vaccines Aged Out No longer eligible based on patient's age to complete this topic Procedures Procedure Name Priority Date/Time Associated Diagnosis Comments ANNUAL BMP BLOOD TEST Routine 12/15/2023 LIPID PANEL Routine 12/12/2021 from Last 3 Months or Most Recently Relevant to Health Maintenance Results * Annual BMP Blood Test (12/15/2023) Annual BMP Blood Test abstracted Historical Provider HEALTH MAINTENANCE Final Result * (ABNORMAL) Lipid panel (12/12/2021) LDL/HDL Ratio 2 0 - 4 Triglycerides 193(A) 0 - 150 mg/dL Cholesterol 131 0 - 200 mg/dL HDL 55 >=40 mg/dL LDL Cholesterol 38 0 - 100 mg/dL Blood Venous blood specimen / Unknown Historical Provider LAB BLOOD ORDERABLES Galina l Result from Last 3 Months or Most Recently Relevant to Health Maintenance [facility] Care Teams Pharmacy Tech Relationship Specialty Start Date End Date Mihir Mccall MD PCP - General Internal Medicine 04/29/20
--- OUTSIDE RECORDS SUMMARY | 2024-12-21 07:46 | XMS_ITS | Clinical Summary ---
Author Organization [facility] Address [address] [place] [address] Phone Care Team Providers Care Portfolio Assistant Name Role Phone Unavailable Primary Care Provider Unavailabl e Allergies No known active allergies Social History Tobacco Use Types Packs/Day Years Used Date Smoking Tobacco: Former Cigarettes Smokeless Tobacco: Never Tobacco Cessation:Counseling Given: Not Answered Alcohol Use Standard Drinks/Week Comments Never 0 (1 standard drink = 0.6 oz pur e alcohol) Sex and Gender Information Value Date Recorded Sex Assigned at Not on file Legal Sex Male 8:57 AM EDT Gender Identity Not on file Sexual Orientation Not on file Plan of Treatment Health Maintenance Due Date Last Done Comments Pneumococcal Vaccine: 50+ Ye ars (2 of 2 - PCV20 or PCV21) 10/01/2017 10/01/2016 Diabetes: Hemoglobin A1C 03/22/2022 Diabetes: Ophthalmology Exam 03/22/2022 Diabetes: Pedal Pulse Checked 03/22/2022 Diabetes: Sensory Foot Exam 03/22/2022 Diabetes: Visual Foot Exam 03/22/2022 Influenza Vaccine (#1) 2025 04/07/2018 Hepatitis B Vaccine Aged Out No longe r eligible based on patient's age to complete this topic Insurance Medicare [facility] Medicare [facility]
--- OUTSIDE RECORDS SUMMARY | 2024-12-21 07:46 | XMS_ITS | Clinical Summary ---
Author Organization [facility] Address [address] [address] Phone Care Team Providers Care Cigar Maker Name Role Phone Mihir Mccall MD Primary Care Provider Heather Perry MD Unavailable [phone] Ramírez Morales MD, MPH Unavailable [phone] Allergies No known active allergies Medications apixaban (ELIQUIS) 5 mg tablet Take 5 mg by mouth 2 (two) times a day. Active lisinopril (PRINIVIL,ZESTRIL ) 5 MG tablet Take 5 mg by mouth daily. Active atorvastatin (LIPITOR) 40 MG tablet Take 40 mg by mouth daily. Active tamsulosin (FLOMAX) 0.4 mg Cp24 Take 0.4 mg by mouth 2 (two) times a day. Active metoprolol succinate (TOPROL-XL) 50 MG 24 hr tablet Take 50 mg by mouth 2 (two) times a day. Active metFORMIN (GLUCOPHAGE) 500 MG tablet Take 1,000 mg by mouth 2 (two) times a day with meals. Active therapeutic multivitamin tablet Take 1 tablet by mouth daily. Active SITagliptin (JANUVIA) 50 MG tablet Take 50 mg by mouth daily. Active furosemide (LASIX) 20 MG tablet TAKE 1 TABLET BY MOUTH EVERY DAY 90 tablet 3 12/18/2019 Active digoxin (LANOXIN) 250 mcg (0.25 mg) tablet TAKE 1 TABLET BY MOUTH EVERY DAY 90 tablet 2 03/08/2020 Active spironolactone (ALDACTONE) 25 MG tablet TAKE 1 TABLET (25 MG TOTAL) BY MOUTH 3 (THREE) TIMES A WEEK ON WEDNESDAY, WEDNESDAY, WEDNESDAY. 36 tablet 06/14/2020 Active Active Problems Problem Noted Date Diagnosed Date Uncoded recurrent back pain 03/03/2007 Overview (07/13/2014): recurrent back pain Immunizations Immunization Administration Dates Next Due Influenza High-Dose Trivalent Preservative Free IM 04/07/2018 Social History Tobacco Use Types Packs/Day Years Used Date Smoking Tobacco: Former Smokeless Tobacco: Former Alcohol Use Standard Drinks/Week Comments No 0 (1 standard drink = 0.6 oz pur e alcohol) Education Answer Date Recorded Are you interested in more education? Not on marisel e 09/27/2022 Are you concerned about learning? Not on file 09/27/2022 No 09/27/2022 No 09/27/2022 Digital Access Answer Date Recorded No 10/13/2022 No 10/13/2022 No 10/13/2022 Reliable internet access at home? Not on file 10/13/2022 Device with a working camera? Not on file Sex and Gender Information Value Date Recorded Sex Assigned at Male 04/28/2022 5:36 PM EST Legal Sex Male 6:40 PM EST Gender Identity Male 04/28/2022 5:36 PM EST Sexual Orientation Straight 04/28/2022 5: 36 PM EST Last Filed Vital Signs Vital Sign Reading Time Taken Comments Blood Pressure 127/63 05/21/2022 1:40 PM EST Pulse 102 05/21/2022 1:40 PM EST Temperature 36.8 C (98.3 F) 05/21/2022 1:39 PM EST Respiratory Rate 18 05/21/2022 1:40 PM EST Oxygen Saturation 96% 05/21/2022 1:40 PM EST Inhaled Oxygen Concentration - - Weight 84.1 kg (185 lb 6.5 oz) 05/21/2022 1:40 P M EST Height 174.7 cm (5' 8.78 ) 05/21/2022 1:40 PM ES T Body Mass Index 27.56 05/21/2022 1:40 PM EST Plan of Treatment Health Maintenance Due Date Last Done Comments Adult Td,Tdap Booster 1940 DEPRESSION SCREENING 1953 ZOSTER VACCINES (1 of 2) 11/07/1991 RSV VACCINE (1 - 1-dose 75+ series) 2016 CREATININE LEVEL 05/22/2020 05/22/2019, , 04/07/2018, Additional history exists POTASSIUM LEVEL 05/22/2020 05/22/2019, 09/21, 04/07/2018, Additional history exists COVID-19 VACCINE ( season) 2024 08/09/2020, 07/18/2020 PNEUMOCOCCAL VACCINES (50+ years) Completed 01/04/2018, 10/01/2016 HEPATITIS A VACCINES Aged Out No long er eligible based on patient's age to complete this topic HIB VACCINES Aged Out No longer eligi ble based on patient's age to complete this topic MENINGOCOCCAL VACCINES (ACWY) Aged Out No longer eligible based on patient's age to complete this topic MENINGOCOCCAL VACCINES (B) Aged Out N o longer eligible based on patient's age to complete this topic Medical Devices Not on file Procedures Procedure Name Priority Date/Time Associated Diagnosis Comments BASIC METABOLIC PANEL Routine 05/22/2019 3:55 PM EST Dyspnea on exertion Dilated cardiomyopathy Chronic systolic congestive heart failure from Last 3 Months or Most Recently Relevant to Health Maintenance Results * (ABNORMAL) Basic metabolic panel (05/22/2019 3:55 PM EST) SODIUM 141 136 - 145 mmol/L [address] [place] [address] LAB POTASSIUM 3.8 3.4 - 5.1 mmol/L [address] [place] [address] LAB CHLORIDE 101 98 - 107 mmol/L [address] [place] [address] LAB CO2 26 22 - 31 mmol/L [address] [place] [address] LAB BUN 20 6 - 23 mg/dL [address] [place] [address] LAB CREATININE 0.79 0.50 - 1.20 mg/dL [address] [place] [address] LAB GLUCOSE 174(H) 70 - 100 mg/dL [address] [place] [address] LAB CALCIUM 9.6 8.8 - 10.7 mg/dL [address] [place] [address] LAB EGFR 87 >59 mL/min/1.[address] [place] [address] LAB Comment:If patient is black, multiply result by 1.159. Estimated glomerular filtration rate calculated using the CKD-EPI equation. ANION GAP 14 7 - 17 mmol/L [address] [place] [address] LAB 05/22/2019 3:55 PM EST 05/22/2019 4:39 PM EST Edwin Delgado MD, MPH LAB BLOOD ORDERABLES Final Result [address] [facility] [address] [place] [address] from Last 3 Months or Most Recently Relevant to Health Maintenance Insurance MEDICARE PART A & B Member Subscriber Plan / Payer (Ef fective 2006-Present) Name:Adonay Méndez Member ID:[id number] Relation to Subscriber:Self Name:Adonay Méndez Subscriber ID:[id number] Payer ID:[id number] Group ID:Not on file Type:Medicare Address: [employer] [facility] [employer] [facility] [address] [facility] [place] [address] [facility] MEDICARE SUPPLEMENT MEDICARE PART A & B [employer] MEDICARE SUPPLEMENT MEDICARE PART A & B [employer] MEDICARE SUPPLEMENT MEDICARE PART A & B [place] MEDICARE SUPPLEMENT MEDICARE PART A & B [place] MEDICARE SUPPLEMENT MEDICARE PART A & B [facility] MEDICARE SUPPLEMENT MEDICARE PART A & B [facility] [employer] MEDICARE SUPPLEMENT MEDICARE PART A & B [facility] [employer] MEDICARE SUPPLEMENT MEDICARE PART A & B [employer] [place] [phone] MEDICARE PART A & B [employer] MEDICARE SUPPLEMENT Care Teams Cigar Maker Relationship Specialty Start Date End Date Mihir Mccall MD [address] [place] [address] [place] [address] PCP - General 11/21/13 Heather Perry MD [address] [place] [email or web address] 05/01/22 Ramírez Morales MD, MPH [address] [place] [email or web address] 05/01/22 Additional Source Comments The information contained in this document represents components of the legal health record. It is not the complete legal health record.[facility]
--- OUTSIDE RECORDS SUMMARY | 2024-12-21 07:46 | XMS_ITS | Patient Health Record ---
Author Organization [facility] Address [address] [place] [address] Care Team Providers Care Clinical Data Management Manager Name Role Phone Stefany CONLEY, Mihir Primary Care Provider Terri Bettencourt Jr, Jose Unavailable Reason For Referral No Information Medications Medication SIG (Take, Route, Fr equency, Duration) Notes Start Date End Date Status Naproxen 500 MG 1 tablet Orally once or twice a day Active metFORMIN HCl 500 MG 1 tablet with meals Orally Twice a day Active Problems Problem Type SNOMED Code ICD Code Onset Dates Problem Status W/U Status Risk Notes Problem 191241254 Encounter for screening for malignant neoplasm of colon (Z12.11) Active confirmed Problem 397162569 History of adenomatous polyp of colon (Z86.010) Active confirmed Problem Encounter for screening for malignant neoplasm of rectum (Z12.12) Active confirmed Problem 18039313 Change in bowel function (R19.4) Active confirmed Plan Of Treatment Future Test Test Name Order Date COLONOSCOPY 06/26/2015 Insurance Providers Payer Name Payer Address Payer Phone Subscriber Number Group Number Insured Name Patient Relationship to Insured Coverage Start Date Coverage End Date MEDICARE OF [place] [address] [place] [address] [phone] [id number] ELMA LYNNE Self - patient is the insured [facility] TH INDEMNITY [address] [place] [address] [id number] ELMA LYNNE Self - patient is the insured Medical (General) History Medical History History ICD Code NIDDM Denies HI,,CVA,Lung disease,renal diseas e 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 Weaver--the lesion could not be removed entirely endoscopically and it was resected surgically as below---F/U colonoscopy in 09/[address] Weaver Kfrscerjt07/2015--treated with temporary course of prednisone and NSAIDs SBO in 2013--no surgery Surgical History Surgery Date(Month/Year) appendectomy-age 14 back surgery lumbar Sigmoid lesion removed by [place]oid [place] [facility] [place]12 days later had a SBO and had [place] [facility] [place]--resection of 56cm of SI 07/03/2008
[2024-12-21 09:52] LABS: Hemoglobin A1C 105.1024 umol/L; Total Hemoglobin (HGBA1C) 2486.4827 umol/L
[2024-12-21 10:01] LABS: Alanine Aminotransferase 23 U/L (0-40); Albumin Level 4.3 g/dL (3.5-5.0); Alkaline Phosphatase 162 U/L (39-117); Aspartate Amino Transferase 42 U/L (5-37); Cholesterol 104 mg/dL (<200); HDL Cholesterol 51 mg/dL (>40); Total Protein 7.3 g/dL (6.5-8.0); Triglycerides 78 mg/dL (<150)
[2024-12-21 11:10] LABS: Reflex LDLD? No
== END 2024-12-21 07:44 | disposition home or self-care (01) ==
LOC: HO.10HDL 07:43
PROVIDERS: Visit Provider Internal Medicine
DX: E11.9 Type 2 diabetes mellitus without complications (principal); E78.00 Pure hypercholesterolemia, unspecified
CPT/HCPCS: 36415; 80061; 80076; 82947; 83036

== ENCOUNTER 2025-04-06 10:34 | Outpatient (REF) | payer MEDICARE, OTHER, SELFPAY ==
[2025-04-06 10:38] LABS: MANUAL DIFF FLAG NO
[2025-04-06 11:39] LABS: Appearance Urine Cloudy; Glucose Urine UA Negative (Negative); PH 6.0 (5.0-9.0); Specific Gravity - Urine 1.025 (1.005-1.025); UMIC TRIGGER UACC YES
[2025-04-06 11:43] LABS: Hematocrit 33.9 % (42.0-52.0); Hemoglobin 9.2 g/dl (14.0-18.0); Imm Gran Abs Auto 0.02 X10*3/uL (0.00-0.03); Imm Gran Pct Auto 0.3 % (0.0-0.4); Lymphocytes Absolute Auto 2.6 X10*3/uL (1.2-4.9); Mean Corpuscular HGB Conc 27.1 g/dl (31.0-36.0); Mean Corpuscular Hemoglobin 18.7 pg (27.0-33.0); Mean Corpuscular Volume 68.8 fL (80.0-98.0); NRBC Abs Auto 0.000 X10*3/uL (0.0-0.012); NRBC Pct Auto 0.0 /100WBC (0.0-0.2); Platelet Count 162 X10*3/uL (160-400); Red Blood Count 4.93 X10*6/uL (4.60-5.80); White Blood Count 7.9 X10*3/uL (4.8-10.8)
[2025-04-06 11:51] LABS: Alanine Aminotransferase 15 U/L (0-40); Albumin Level 4.1 g/dL (3.5-5.0); Alkaline Phosphatase 98 U/L (39-117); Anion Gap 14 (12-20); Aspartate Amino Transferase 38 U/L (5-37); Blood Urea Nitrogen 28 mg/dL (9-16); Calcium 9.3 mg/dL (8.4-10.2); Carbon Dioxide 27 mmol/L (22-29); Chloride 106 mmol/L (96-108); Cholesterol 100 mg/dL (<200); Estimated Glomerular Filt Rate > 60; HDL Cholesterol 45 mg/dL (>40); Potassium 4.2 mmol/L (3.3-5.1); Sodium 143 mmol/L (135-145); Total Protein 6.9 g/dL (6.5-8.0); Triglycerides 77 mg/dL (<150)
[2025-04-06 11:56] LABS: UACC Culture Trigger YES
[2025-04-06 12:03] LABS: PSA,Total (Free>4and<10) 1.38 ng/mL (0.00-4.00)
[2025-04-06 12:43] LABS: Microalbum/Creatinine Ratio Ur 436.6 ug/mg cr (<30)
== END 2025-04-06 10:35 | disposition home or self-care (01) ==
LOC: HO.LNP 10:34
PROVIDERS: Visit Provider Internal Medicine
DX: N40.0 Benign prostatic hyperplasia without lower urinary tract symptoms (principal); E11.9 Type 2 diabetes mellitus without complications; I50.21 Acute systolic (congestive) heart failure; E78.00 Pure hypercholesterolemia, unspecified; Z12.5 Encounter for screening for malignant neoplasm of prostate
CPT/HCPCS: 80053; 80061; 81001; 82043; 82570; 83036; 84153; 85025; 87086; 87088; 87186

== ENCOUNTER 2025-04-13 13:14 | Outpatient (REF) | payer MEDICARE, OTHER, SELFPAY ==
--- OUTSIDE RECORDS SUMMARY | 2024-03-16 04:15 | XMS_ITS ---
Author Organization Mihir Mccall MD Address [address] [place], [place] [id number] Care Team Providers Care Furniture Manager Name Role Phone Mihir Mccall Primary Care Provider REASON FOR VISIT Liver Panel Encounters Encounter Location Date Provider Diagnosis Mihir Mccall MD [address] [place], [place] [phone] 03/16/2024 Mihir Mccall Plan Of Treatment Next Appt Details Provider Name:Mihir hemphill, 05/01/2025 10:15:00 AM, [address] [facility], [address], [place], [place], [phone], Provider Name:Mihir hemphill, 10/04/2025 07:15:00 AM, [address], [address], [place], [id number], Provider Name:Mihir Phillips ier, 10/11/2025 10:15:00 AM, [address], [address], [place], [phone], Provider Name:Miihr Phillips ier, 04/16/2026 07:15:00 AM, [address], [address], [place], [phone], Provider Name:Mihir Phillips ier, 04/23/2026 09:30:00 AM, [address], [address], [place], [phone], Progress Notes * Adonay MÉNDEZ DDOB:[birth year] (84 yo M)Acc No.[id number]:03/16/2024 Progress Note Patient: Adonay MATA Provider: Iris Mccall MD :1940 A ge:83 Y S ex:Male Date:03/16/2024 Address:[address] [place] [address], [place] [id number] Subjective: * Chief Complaints: * 1 . Liver Panel. * Medical History: Objective: * Vitals: Assessment: Plan: * Treatment: * * The named appointment provid er may or may not be the originator of this progress note, and it is not deemed complete until electronically signed by the appointment provider. Sign off status: Pending * Provider: Iris Mccall MD Date: Generated for Erasto loya/Anatoliy/Cinthyasmitting on: 06/13/2024 01:31 PM EST
--- OUTSIDE RECORDS SUMMARY | 2024-06-23 09:00 | XMS_ITS ---
Author Organization Mihir Mccall MD Address [address] [place], [place] [id number] Care Team Providers Care [facility] Aides Teacher Name Role Phone Mihir Mccall Primary Care Provider [phone] Allergies Allergen (clinical drug ingredient) Drug/Non Drug Allergy documented on EMR Reaction Allergy Type Onset Date Status simvastatin Simvastatin myalgia Drug Allergy Act corwin rosuvastatin Crestor myalgia Drug Allergy Acti ve Results Component Value Reference Range Notes Hemoglobin A1c Reviewed date:06/23/2024 02:02:33 PM Interpretation: Performing Lab: Notes/Report: Hemoglobin A1c 6.7 Glucose, finger stick Reviewed date:06/23/2024 01:57:23 PM Interpretation: Performing Lab: Notes/Report: Value 167 REASON FOR VISIT 3 month DM Medications Medication SIG (Take, Route, Frequency, Duration) Notes Start Date End Date Status Spironolactone 25 MG 1 tablet Orally M W Not-Taking Docusate Sodium 100 MG 1 capsule as need ed Orally Once a day for 30 day(s) Not-Taking Digoxin 125 MCG TAKE 1 TABLET BY SERVANDO TH EVERY DAY Orally Once a day Active oxyCODONE HCl 5 MG 1 tablet as needed Orally every 6 hrs Not-Taking Tessalon Perles 100 MG 1 capsule as need ed Orally Three times a day Not-Taking Pantoprazole Sodium 40 MG TAKE 1 TABLET BY MOUTH TWICE A DAY for 90 Active Eliquis 5 MG TAKE 1 TABLET BY SERVANDO TH TWICE A DAY for 30 Active Tamsulosin HCl 0.4 MG TAKE 1 CAPSULE BY MOUTH EVERY DAY for 90 Active Atorvastatin Calcium 40 MG TAKE 1 TABLET BY MOUTH EVERY DAY for 90 Active Furosemide 20 MG 1 tablet Orally Once a day for 90 days Active Januvia 50 MG TAKE 1 TABLET BY SERVANDO TH EVERY DAY Active Viagra 100 MG 1 tablet as needed Orally Once a day for 30 day(s) 10/22/2014 Not-Taking Valtrex 1 GM 1 tablet Orally 3 times per for 7 days 12/31/2016 Not-Taking Naproxen Sodium ER 500 MG 2 tablet Orall y Once a day Not-Taking Metoprolol Succinate ER 50 MG TAKE 1 TABLET BY MOUTH TWICE A DAY for 90 Active metFORMIN HCl 500 MG TAKE 2 TABLETS BY MOUTH TWICE A DAY Active Vital Signs Blood pressure systolic 142 mm Hg 06/23/19 25 Blood pressure diastolic 66 mm Hg 025 Height 70 in 06/23/2024 Weight 183 lbs 06/23/2024 BMI 26.25 kg/m2 06/23/2024 weight is down 8 pounds [facility] 03-13-24 Encounters Encounter Location Date Provider Diagnosis Mihir Mccall MD [address] [place] [phone] 06/23/2024 Mihir Mccall Type 2 diabetes mellitus without complication E11.9 and Heart failure, unspecified I50.9 Assessments Encounter Date Diagnosis (ICD Code) Assessment Notes Treatment Notes Treatment Clinical Notes Section Notes 06/23/2024 Type 2 diabetes mellitus without complication (ICD-10 - E11.9) doing well, will continue current regiment 06/23/2024 Heart failure, unspecified (ICD-10 - I50.9) seems to be stable from the perspective of his heart failure. is having a lot of trouble living by himself without the support of his who but has family around. especially his grandson. Plan Of Treatment Medication Medication Name Sig Start Date Stop Date Notes Digoxin 125 MCG TAKE 1 TABLET BY SERVANDO TH EVERY DAY Orally Once a day Januvia 50 MG TAKE 1 TABLET BY MOUTH EVERY DAY metFORMIN HCl 500 MG TAKE 2 TABLETS BY MOUTH TWICE A DAY Treatment Notes Assessment Notes Type 2 diabetes mellitus wit hout complication doing well, will continue current regime nt Heart failure, unspecified seems to be s table from the perspective of his heart failure. is having a lot of trouble living by himself without the support of his who but has family around. especially his grandson. Next Appt Details Follow Up: 6 Months, Reason: Provider Name:Mihir hemphill, 05/01/2025 10:15:00 AM, [address] [place] [address], [address], [phone], Provider Name:Mihir hemphill, 10/04/2025 07:15:00 AM, [address] [place] [address], [address], [phone], Provider Name:Mihir hemphill, 10/11/2025 10:15:00 AM, [address] [place] [address], [phone], Provider Name:Mihir hemphill, 04/16/2026 07:15:00 AM, [address] [place] [address], [phone], Provider Name:Mihir hemphill, 04/23/2026 09:30:00 AM, [address] [place] [address], [phone], Progress Notes * Adonay LYNNE DDOB:[birth year] (83 yo M)Acc No.[id number]:06/23/2024 Progress Notes Patient: Adonay MATA Provider: Iris Mccall MD :1940 A ge:83 Y S ex:Male Date:06/23/2024 Address:[address], [place], [id number] Subjective: * Chief Complaints: * 3 month DM * HPI: S ymptom(s): patient is a 83 yo male here for 3 month follow up diabetes. feeling well. had the flu a few weeks ago. no appetite. * ROS: G eneral/Constitutional: Denies C hills. D enies F atigue. D enies F ever. D enies H eadache. E NT: Patient denies d ecreased sense of smell, any loss of taste, sore throat. D enies S ore throat. E ndocrine: Admits D ifficulty sleeping. D enies D izziness.?Denies E xcessive sweating. D enies E xcessive thirst. A dmits F requent urination. R espiratory: Denies C ough. D enies S hortness of breath at rest. D enies S hortness of breath with exertion. G astrointestinal: Denies D iarrhea. D enies N ausea. M usculoskeletal: Patient denies m uscle aches. P eripheral Vascular: Patient denies r ed and blue toes. * Medical History: * Surgical History: * Hospitalization/Major Diagno stic Procedure: * Medications: T akingMetoprolol Succinate ER 50 MG Tablet Extended Release 24 Hour TAKE 1 TABLET BY MOUTH TWICE A DAY Furosemide 20 MG Tablet 1 tablet Orally Once a day Digoxin 125 MCG Tablet TAKE 1 TABLET BY MOUTH EVERY DAY Orally Once a day metFORMIN HCl 500 MG Tablet TAKE 2 TABLETS BY MOUTH TWICE A DAY Januvia 50 MG Tablet TAKE 1 TABLET BY MOUTH EVERY DAY Atorvastatin Calcium 40 MG Tablet TAKE 1 TABLET BY MOUTH EVERY DAY Tamsulosin HCl 0.4 MG Capsule TAKE 1 CAPSULE BY MOUTH EVERY DAY Pantoprazole Sodium 40 MG Tablet Delayed Release TAKE 1 TABLET BY MOUTH TWICE A DAY Eliquis 5 MG Tablet TAKE 1 TABLET BY MOUTH TWICE A DAY Taking Metoprolol Succinate ER 50 MG Tablet Extended Release 24 Hour TAKE 1 TABLET BY MOUTH TWICE A DAY Taking Furosemide 20 MG Tablet 1 tablet Orally Once a day Taking Digoxin 125 MCG Tablet TAKE 1 TABLET BY MOUTH EVERY DAY Orally Once a day Taking metFORMIN HCl 500 MG Tablet TAKE 2 TABLETS BY MOUTH TWICE A DAY Taking Januvia 50 MG Tablet TAKE 1 TABLET BY MOUTH EVERY DAY Taking Atorvastatin Calcium 40 MG Tablet TAKE 1 TABLET BY MOUTH EVERY DAY Taking Tamsulosin HCl 0.4 MG Capsule TAKE 1 CAPSULE BY MOUTH EVERY DAY Taking Pantoprazole Sodium 40 MG Tablet Delayed Release TAKE 1 TABLET BY MOUTH TWICE A DAY Taking Eliquis 5 MG Tablet TAKE 1 TABLET BY MOUTH TWICE A DAY Not-Taking/PRNSpironolactone 25 MG Tablet 1 tablet Orally Docusate Sodium 100 MG Capsule 1 capsule as needed Orally Once a day oxyCODONE HCl 5 MG Tablet 1 tablet as needed Orally every 6 hrs Tessalon Perles 100 MG Capsule 1 capsule as needed Orally Three times a day Valtrex 1 GM Tablet 1 tablet Orally 3 times per Naproxen Sodium ER 500 MG Tablet Extended Release 24 Hour 2 tablet Orally Once a day Viagra 100 MG Tablet 1 tablet as needed Orally Once a day Medication List reviewed and reconciled with the patientNot-Taking/PRN Spironolactone 25 MG Tablet 1 tablet Orally Not-Taking/PRN Docusate Sodium 100 MG Capsule 1 capsule as needed Orally Once a day Not-Taking/PRN oxyCODONE HCl 5 MG Tablet 1 tablet as needed Orally every 6 hrs Not-Taking/PRN Tessalon Perles 100 MG Capsule 1 capsule as needed Orally Three times a day Not-Taking/PRN Valtrex 1 GM Tablet 1 tablet Orally 3 times per Not-Taking/PRN Naproxen Sodium ER 500 MG Tablet Extended Release 24 Hour 2 tablet Orally Once a day Not-Taking/PRN Viagra 100 MG Tablet 1 tablet as needed Orally Once a day Medication List reviewed and reconciled with the patient * Allergies: C restor: myalgiaSimvastatin: myalgiayes[Allergies Verified] Objective: * Vitals: H t: 70, Wt: 183, BMI:26.25, BP:142/66, Wt-k.01. weight is down 8 pounds since 03-13-24. * Examination: G eneral Examination: GENERAL APPEARANCE: a lert, well hydrated, in no distress.? HEAD: n ormocephalic. SKIN: g ood turgor. HEART: n o murmurs, rubs, gallops, regular rate and rhythm.? LUNGS: n o wheezes, rales, rhonchi, good air movement, clear to auscultation bilaterally. EXTREMITIES: n o edema. Assessment: * Assessment: 1. T ype 2 diabetes mellitus without complication - E11.9 (Primary) 2 . H eart failure, unspecified - I50.9 Plan: * Treatment: Value Reference Range H emoglobin A1c 6.7 ?LAB: Glucose, finger stick (Collection Date & Time - 06/23/2024)* Value Reference Range V alue 167 Notes: doing well, will continue current regiment??2.?Heart failure, unspecified ? Continue Digoxin Tablet, 125 MCG, TAKE 1 TABLET BY MOUTH EVERY DAY, Orally, Once a day.?? Notes: seems to be stable from the perspective of his heart failure. is having a lot of trouble living by himself without the support of his who but has family around. especially his grandson.?? * Procedure Codes: 8 2947 ASSAY, GLUCOSE, BLOOD QUANT, Modifiers: QW 55384 GLYCATED HEMOGLOBIN TEST, Modifiers: QW * Follow Up: 6 Months * * Sign off status: Completed true * Provider: Iris Mccall MD Date: 0 06/23/2024 Generated for Erasto loya/Anatoliy/Iliritting on: 06/13/2024 01:32 PM EST History and Physical Notes * HPI (History of Present Illness) Category Sub-Category Detail Notes Category Not es Symptom(s) patient is a 83 yo male here for 3 month follow up diabetes. feeling well. had the flu a few weeks ago. no appetite. Examination Category Sub-Category Detail Notes Category Not es General Examination GENERAL APPEARANCE: alert, w ell hydrated, in no distress HEAD: normocephalic HEART: no murmurs, rubs, ga llops, regular rate and rhythm LUNGS: no wheezes, rales, r honchi, good air movement, clear to auscultation bilaterally SKIN: good turgor EXTREMITIES: no edema
--- OUTSIDE RECORDS SUMMARY | 2024-09-07 05:21 | XMS_ITS ---
Author Organization Mihir Mccall MD Address [address] [place] [phone] Care Team Providers Care Precision Honer Name Role Phone Mihir Mccall Primary Care Provider REASON FOR VISIT REFILL ELIQUIS Medications Medication SIG (Take, Route, Frequency, Duration) Notes Start Date End Date Status Eliquis 5 MG as directed Orally t wice a day for 30 days Active Encounters Encounter Location Date Provider Diagnosis Mihir Mccall MD [address] [place] [phone] 09/07/2024 Mihir Mccall Plan Of Treatment Medication Medication Name Sig Start Date Stop Date Notes Eliquis 5 MG as directed Orally twice a day for 30 days Next Appt Details Provider Name:Mihir hemphill, 05/01/2025 10:15:00 AM, [address] [facility], [address], [place], [place], [phone], Provider Name:Mihir Phillips ier, 10/04/2025 07:15:00 AM, [address] [place] [address], [address], [place], [phone], Provider Name:Mihir Phillips ier, 10/11/2025 10:15:00 AM, [address] [place] [address], Suite [facility], [place], [place], [phone], Provider Name:Mihir Phillips ier, 04/16/2026 07:15:00 AM, [address] [place] [address], Suite [facility], [place], [place], [phone], Provider Name:Mihir Phillips ier, 04/23/2026 09:30:00 AM, [address] [place] [address], Suite [facility], [place], [place], [phone], Progress Notes * Adonay LYNNE DDOB:[birth year] (83 yo M)Acc No.[id number]:09/07/2024 Patient: Iris VENTURAAdonay :1940 A ge:83 Y S ex:Male Address:[address], [place] [address] * Refills Refill Eliquis Tablet, 5 MG, Orally, 60, as directed, twice a day, 30 days, Refills=3 * true * Date: Generated for Erasto loya/Anatoliy/eTransmitting on: 06/13/2024 01:32 PM EST
--- OUTSIDE RECORDS SUMMARY | 2024-10-31 09:30 | XMS_ITS ---
Author Organization Mihir Mcclal MD Address [address] [place], [place] [phone] Care Team Providers Care Cook Box Filler Name Role Phone Mihir Mccall Primary Care Provider Allergies Allergen (clinical drug ingredient) Drug/Non Drug Allergy documented on EMR Reaction Allergy Type Onset Date Status simvastatin Simvastatin myalgia Drug Allergy Act corwin rosuvastatin Crestor myalgia Drug Allergy Acti ve Results Component Value Reference Range Notes Hemoglobin A1c Reviewed date:10/31/2024 02:39:19 PM Interpretation: Performing Lab: Notes/Report: Hemoglobin A1c 5.9 Glucose, finger stick Reviewed date:10/31/2024 02:33:50 PM Interpretation: Performing Lab: Notes/Report: Value 121 REASON FOR VISIT check BP check Metoprolol, Patient has been taking Metoprolol succ 50mg once a day Medications Medication SIG (Take, Route, Frequency, Duration) Notes Start Date End Date Status Furosemide 20 MG TAKE 1 TABLET BY SERVANDO TH TWICE A DAY Active Atorvastatin Calcium 40 MG TAKE 1 TABLET BY MOUTH EVERY DAY for 90 Active Tamsulosin HCl 0.4 MG TAKE 1 CAPSULE BY MOUTH EVERY DAY for 90 Active Eliquis 5 MG as directed Orally twice a day Active metFORMIN HCl 500 MG TAKE 2 TABLETS BY MOUTH TWICE A DAY Active Digoxin 125 MCG TAKE 1 TABLET BY SERVANDO TH EVERY DAY Orally Once a day Active Viagra 100 MG 1 tablet as needed Orally Once a day for 30 day(s) 10/22/2014 Not-Taking Metoprolol Succinate ER 50 MG 1 tablet Orally Once a day Active Naproxen Sodium ER 500 MG 2 tablet Orall y Once a day Not-Taking Tessalon Perles 100 MG 1 capsule as need ed Orally Three times a day Not-Taking Valtrex 1 GM 1 tablet Orally 3 times per for 7 days 12/31/2016 Not-Taking Docusate Sodium 100 MG 1 capsule as need ed Orally Once a day for 30 day(s) Not-Taking oxyCODONE HCl 5 MG 1 tablet as needed Orally every 6 hrs Not-Taking Spironolactone 25 MG 1 tablet Orally Not-Taking Pantoprazole Sodium 40 MG TAKE 1 TABLET BY MOUTH TWICE A DAY for 90 Active Vital Signs Blood pressure systolic 132 mm Hg 11/01/19 25 Blood pressure diastolic 60 mm Hg 025 Height 70 in 10/31/2024 Weight 170 lbs 10/31/2024 BMI 24.39 kg/m2 10/31/2024 weight is down 13 pounds [facility] 06-23-24 Encounters Encounter Location Date Provider Diagnosis Mihir Mccall MD [address] [place], [place] [phone] 10/31/2024 Mihir Mccall Type 2 diabetes mellitus without complication E11.9 ; Weight loss R63.4 ; Acute systolic congestive heart failure I50.21 and Persistent atrial fibrillation I48.19 Assessments Encounter Date Diagnosis (ICD Code) Assessment Notes Treatment Notes Treatment Clinical Notes Section Notes 10/31/2024 Type 2 diabetes mellitus without complication (ICD-10 - E11.9) well controlled 10/31/2024 Weight loss (ICD-10 - R63.4) eating a lot. had a big meal last night. 10/31/2024 Acute systolic congestive heart failure (ICD-10 - I50.21) stable 10/31/2024 Persistent atrial fibrillation (ICD-10 - I48.19) is thinking of getting a watchman/ need notes from dr bean/ will send for records Plan Of Treatment Medication Medication Name Sig Start Date Stop Date Notes Furosemide 20 MG TAKE 1 TABLET BY SERVANDO TH TWICE A DAY Eliquis 5 MG as directed Orally t wice a day metFORMIN HCl 500 MG TAKE 2 TABLETS BY M OUTH TWICE A DAY Digoxin 125 MCG TAKE 1 TABLET BY SERVANDO TH EVERY DAY Orally Once a day Januvia 50 MG TAKE 1 TABLET BY SERVANDO TH EVERY DAY Metoprolol Succinate ER 50 MG 1 tablet Orally Once a day Treatment Notes Assessment Notes Type 2 diabetes mellitus wit hout complication well controlled Weight loss eating a lot. had a big meal last night. Acute systolic congestive heart failure stable Persistent atrial fibrillation is thinki ng of getting a watchman/ need notes from dr bean/ will send for records Next Appt Details Follow Up: 3 Months, Reason: Provider Name:Mihir hemphill, 05/01/2025 10:15:00 AM, [address] [place] [address], [address], [phone], Provider Name:Mihir hemphill, 10/04/2025 07:15:00 AM, [address] [place] [address], [address], [phone], Provider Name:Mihir hemphill, 10/11/2025 10:15:00 AM, [address] [place] [address], [address], [phone], Provider Name:Mihir hemphill, 04/16/2026 07:15:00 AM, [address] [place] [address], [address], [phone], Provider Name:Mihir hemphill, 04/23/2026 09:30:00 AM, [address] [place] [address], [address], [phone], Progress Notes * Adonay LYNNE DDOB:[birth year] (84 yo M)Acc No.[id number]:10/31/2024 Progress Notes Patient: Adonay MATA Provider: Iris Mccall MD :1940 A ge:83 Y S ex:Male Date:10/31/2024 Address:[address], [place], [facility] Subjective: * Chief Complaints: * c heck BP check MetoprololPatient has been taking Metoprolol succ 50mg once a day * HPI: S ymptom(s): patient is a 83 yo male here for follow up BP. * ROS: G eneral/Constitutional: Denies C hills. D enies F atigue. D enies F ever. D enies H eadache. E NT: Denies S ore throat. E ndocrine: Denies D ifficulty sleeping. D enies D izziness.?Denies E xcessive sweating. A dmits E xcessive thirst. A dmits F requent urination. R espiratory: Denies C ough. D enies S hortness of breath at rest. D enies S hortness of breath with exertion. G astrointestinal: Denies D iarrhea. D enies N ausea. * Medical History: * Surgical History: * Hospitalization/Major Diagno stic Procedure: * Medications: T akingAtorvastatin Calcium 40 MG Tablet TAKE 1 TABLET BY MOUTH EVERY DAY Tamsulosin HCl 0.4 MG Capsule TAKE 1 CAPSULE BY MOUTH EVERY DAY Pantoprazole Sodium 40 MG Tablet Delayed Release TAKE 1 TABLET BY MOUTH TWICE A DAY Digoxin 125 MCG Tablet TAKE 1 TABLET BY MOUTH EVERY DAY Orally Once a day Eliquis 5 MG Tablet as directed Orally twice a day metFORMIN HCl 500 MG Tablet TAKE 2 TABLETS BY MOUTH TWICE A DAY Furosemide 20 MG Tablet TAKE 1 TABLET BY MOUTH TWICE A DAY Metoprolol Succinate ER 50 MG Tablet Extended Release 24 Hour 1 tablet once a day Taking Atorvastatin Calcium 40 MG Tablet TAKE 1 TABLET BY MOUTH EVERY DAY Taking Tamsulosin HCl 0.4 MG Capsule TAKE 1 CAPSULE BY MOUTH EVERY DAY Taking Pantoprazole Sodium 40 MG Tablet Delayed Release TAKE 1 TABLET BY MOUTH TWICE A DAY Taking Digoxin 125 MCG Tablet TAKE 1 TABLET BY MOUTH EVERY DAY Orally Once a day Taking Eliquis 5 MG Tablet as directed Orally twice a day Taking metFORMIN HCl 500 MG Tablet TAKE 2 TABLETS BY MOUTH TWICE A DAY Taking Furosemide 20 MG Tablet TAKE 1 TABLET BY MOUTH TWICE A DAY Taking Metoprolol Succinate ER 50 MG Tablet Extended Release 24 Hour 1 tablet once a day Not-Taking/PRNSpironolactone 25 MG Tablet 1 tablet Orally [...] tablet as needed Orally Once a day Not-Taking/PRN Spironolactone 25 MG Tablet 1 tablet Orally [...] tablet as needed Orally Once a day DiscontinuedJanuvia 50 MG Tablet TAKE 1 TABLET BY MOUTH EVERY DAY Medication List reviewed and reconciled with the patientDiscontinued Januvia 50 MG Tablet TAKE 1 TABLET BY MOUTH EVERY DAY Medication List reviewed and reconciled with the patient * Allergies: C restor: myalgiaSimvastatin: myalgiayes[Allergies Verified] Objective: * Vitals: H t: 70, Wt: 170, BMI:24.39, BP:132/60, Wt-k.11. weight is down 13 pounds since 06-23-24. * Examination: G eneral Examination: GENERAL APPEARANCE: a lert, well hydrated, in no distress.? HEAD: n ormocephalic. SKIN: g ood turgor. HEART: i rregularly irregular rhythm. LUNGS: n o wheezes, rales, rhonchi, good air movement, clear to auscultation bilaterally. Assessment: * Assessment: 1. T ype 2 diabetes mellitus without complication - E11.9 (Primary) 2 . W eight loss - R63.4 3 . A cute systolic congestive heart failure - I50.21 ? 4 . P ersistent atrial fibrillation - I48.19 Plan: * Treatment: Value Reference Range H emoglobin A1c 5.9 ?LAB: Glucose, finger stick (Collection Date & Time - 10/31/2024)* Value Reference Range V alue 121 Notes: well controlled??2.?Weight loss? Notes: eating a lot. had a big meal last night. ??3.?Acute systolic congestive heart failure? Continue Digoxin Tablet, 125 MCG, TAKE 1 TABLET BY MOUTH EVERY DAY, Orally, Once a day;?Continue Furosemide Tablet, 20 MG, TAKE 1 TABLET BY MOUTH TWICE A DAY.?? Notes: stable??4.?Persistent atrial fibrillation? Continue Eliquis Tablet, 5 MG, as directed, Orally, twice a day.?? Notes: is thinking of getting a watchman/ need notes from dr bean/ will send for records ? * Procedure Codes: 8 2947 ASSAY, GLUCOSE, BLOOD QUANT, Modifiers: QW 53781 GLYCATED HEMOGLOBIN TEST, Modifiers: QW G2211 Complex e/m visit add on * Follow Up: 3 Months * * Sign off status: Completed true * Provider: Iris Mccall MD Date: 0 10/31/2024 Generated for Erasto loya/Anatoliy/eTanasmitting on: 1 06/13/2024 01:31 PM EST History and Physical Notes * HPI (History of Present Illness) Category Sub-Category Detail Notes Category Not es Symptom(s) patient is a 83 yo male here for follow up BP Examination Category Sub-Category Detail Notes Category Not es General Examination GENERAL APPEARANCE: alert, w ell hydrated, in no distress HEAD: normocephalic HEART: irregularly irregula r rhythm LUNGS: no wheezes, rales, r honchi, good air movement, clear to auscultation bilaterally SKIN: good turgor
--- OUTSIDE RECORDS SUMMARY | 2024-12-21 03:00 | XMS_ITS ---
Author Organization Mihir Mccall MD Address [address] [place], [place] [id number] Care Team Providers Care Coil Shaper Name Role Phone Mihir Mccall Primary Care Provider [phone] Results Component Value Reference Range Notes Liver Panel Reviewed date:12/21/2024 02:46:56 PM Interpretation: Performing Lab:[facility], [address] [place] [id number] Notes/Report: Bilirubin Total 0.7 0.0-1.0 mg/dL Bilirubin Direct 0.3 0.0-0.5 mg/dL Aspartate Amino Transferase 42 5-37 U/L Alanine Aminotransferase 23 0-40 U/L Total Protein 7.3 6.5-8.0 g/dL Albumin Level 4.3 3.5-5.0 g/dL Alkaline Phosphatase 162 39-117 U/L Glucose Fasting Reviewed date:12/21/2024 02:49:51 PM Interpretation: Performing Lab:[address] [phone] Notes/Report: Glucose Fasting 137 60-99 mg/dL A fasting glucose of 126 mg/dl or greater on more than one occasion is considered diagnostic of diabetes. Lipid Panel with Reflex Reviewed date:12/21/2024 02:50:01 PM Interpretation: Performing Lab:[facility], [address] [place] [id number] Notes/Report: Triglycerides 78 <150 mg/dL Desirable Triglyceride: less than 150 mg/dL Borderline High Triglyceride 150-199 mg/dL High Triglyceride: 200-499 mg/dL Very High Triglyceride: greater than or equal to 5OO mg/dL Cholesterol 104 <200 mg/dL Desirable Cholesterol: less than 200 mg/dL Borderline High Cholesterol: 200-239 mg/dL High Cholesterol: greater than 239 mg/dL LDL Cholesterol Calculated 38 <100 mg/dL Desirable LDL: less than 100 mg/dL Near Optimal/Above Optimal LDL: 110-129 mg/dL Borderline High LDL: 130-159 mg/dL High LDL: 160-189 mg/dL Very High LDL: greater than or equal to 190 mg/dL HDL Cholesterol 51 >40 mg/dL Desirable HDL: greater than 40 mg/dL Note: This HDL assay may give artificially low results in patients with liver disease. Hemoglobin A1c Reviewed date:12/21/2024 02:49:43 PM Interpretation: Performing Lab:[address] [phone] Notes/Report: Hemoglobin A1c % 6.0 <6.0 % Hemoglobin A1C Reference Range Adults: 4.8 - 6.0 % Non diabetic: < 6.0 % Goal: < 7.0 % Additional Action Suggested: > 8.0 % Note: Hemoglobin A1c results are invalid for patients with abnormal amounts of HbF. Blood transfusions may impact the HbA1c concentration in the patient sample. Estimated Average Glucose 126 eAG = Estimated average glucose which is %A1C expressed as average glucose, using the formula of the Z0O-Waabebe Average Glucose study (ADAG), Diabetes Care, Vol.31,#8, Dec2007 REASON FOR VISIT FASTING LIPID, LIVER PANEL Encounters Encounter Location Date Provider Diagnosis Mihir Mccall MD [address] [place] [address] [place] [phone] 12/21/2024 Mihir Mccall Type 2 diabetes julian itus without complication E11.9 and Pure hypercholesterolemia E78.00 Assessments Encounter Date Diagnosis (ICD Code) Assessment Notes Treatment Notes Treatment Clinical Notes Section Notes 12/21/2024 Type 2 diabetes julian itus without complication (ICD-10 - E11.9) 12/21/2024 Pure hypercholesterolemia (ICD-10 - E78.00) Plan Of Treatment Next Appt Details Provider Name:Mihir hemphill, 05/01/2025 10:15:00 AM, [address] [place] [address], [address], [phone], Provider Name:Mihir hemphill, 10/04/2025 07:15:00 AM, [address] [place] [address], [address], [phone], Provider Name:Mihir hemphill, 10/11/2025 10:15:00 AM, [address] [place] [address], [address], [id number], Provider Name:Mihir hemphill, 04/16/2026 07:15:00 AM, [address] [place] [address], [address], [phone], Provider Name:Mihir hemphill, 04/23/2026 09:30:00 AM, [address] [place] [address], [address], [phone], Progress Notes * Adonay MÉNDEZ DDOB:[birth year] (84 yo M)Acc No.[id number]:12/21/2024 Progress Note Patient: Adonay MATA Jory Provider: Iris Mccall MD :1940 A ge:84 Y S ex:Male Date:12/21/2024 Address:[address] [place] [address], [place] [id number] Subjective: * Chief Complaints: * 1 . FASTING LIPID, LIVER PANEL. * Medical History: Objective: * Vitals: Assessment: * Assessment: 1. T ype 2 diabetes mellitus without complication - E11.9 (Primary) 2 . P ure hypercholesterolemia - E78.00 Plan: * Treatment: 2. P ure hypercholesterolemia L AB: Liver Panel (Collection Date & Time - 12/21/2024 07:48 AM) L AB: Glucose Fasting (Collection Date & Time - 12/21/2024 07:48 AM) L AB: Lipid Panel with Reflex (Collection Date & Time - 12/21/2024 07:48 AM) L AB: Hemoglobin A1c (Collection Date & Time - 12/21/2024 07:48 AM) * * The named appointment provid er may or may not be the originator of this progress note, and it is not deemed complete until electronically signed by the appointment provider. Sign off status: Pending * Provider: Iris Mccall MD Date: 0 12/21/2024 Generated for Erasto loya/Anatoliy/Iliritting on: 1 06/13/2024 01:30 PM EST
--- OUTSIDE RECORDS SUMMARY | 2025-01-04 05:15 | XMS_ITS ---
Author Organization Mihir Mccall MD Address [address] [place], [place] [id number] Care Team Providers Care Book Reviewer Name Role Phone Mihir Mccall Primary Care Provider Allergies Allergen (clinical drug ingredient) Drug/Non Drug Allergy documented on EMR Reaction Allergy Type Onset Date Status simvastatin Simvastatin myalgia Drug Allergy Act corwin rosuvastatin Crestor myalgia Drug Allergy Acti ve Results Component Value Reference Range Notes Glucose, finger stick Reviewed date:01/04/2025 10:42:38 AM Interpretation: Performing Lab: Notes/Report: Value 142 REASON FOR VISIT 6 MOF/U Medications Medication SIG (Take, Route, Frequency, Duration) Notes Start Date End Date Status Metoprolol Succinate ER 50 MG 1 tablet Orally Once a day Active Digoxin 125 MCG TAKE 1 TABLET BY SERVANDO EVERY DAY Orally Once a day Active Eliquis 5 MG TAKE 1 TABLET BY SERVANDO TH TWICE A DAY DIRECTED for 90 Active Furosemide 20 MG TAKE 1 TABLET BY SERVANDO TH TWICE A DAY Active Viagra 100 MG 1 tablet as needed Orally Once a day for 30 day(s) 10/22/2014 Not-Taking Valtrex 1 GM 1 tablet Orally 3 times per for 7 days 12/31/2016 Not-Taking Tessalon Perles 100 MG 1 capsule as need ed Orally Three times a day Not-Taking metFORMIN HCl 500 MG TAKE 2 TABLETS BY MOUTH TWICE A DAY Active Atorvastatin Calcium 40 MG TAKE 1 TABLET BY MOUTH EVERY DAY Active Naproxen Sodium ER 500 MG 2 tablet Orall y Once a day Not-Taking Docusate Sodium 100 MG 1 capsule as need ed Orally Once a day for 30 day(s) Not-Taking Spironolactone 25 MG 1 tablet Orally W Not-Taking oxyCODONE HCl 5 MG 1 tablet as needed Orally every 6 hrs Not-Taking Pantoprazole Sodium 40 MG TAKE 1 TABLET BY MOUTH TWICE A DAY for 90 Active Tamsulosin HCl 0.4 MG TAKE 1 CAPSULE BY MOUTH EVERY DAY for 90 Active Vital Signs Blood pressure systolic 92 mm Hg 01/05/20 25 Blood pressure diastolic 50 mm Hg 025 Height 70 in 01/04/2025 Weight 170 lbs 01/04/2025 BMI 24.39 kg/m2 01/04/2025 Encounters Encounter Location Date Provider Diagnosis Mihir Mccall MD [address] [facility] [address] [place], [place] [id number] 01/04/2025 Mihir Mccall Type 2 diabetes julian itus without complication E11.9 ; Acute systolic congestive heart failure I50.21 and Pure hypercholesterolemia E78.00 Assessments Encounter Date Diagnosis (ICD Code) Assessment Notes Treatment Notes Treatment Clinical Notes Section Notes 01/04/2025 Type 2 diabetes julian itus without complication (ICD-10 - E11.9) well controlled on present med, will continue current regiment 01/04/2025 Acute systolic congestive heart failure (ICD-10 - I50.21) doing well on present meds, will continue current regiment 01/04/2025 Pure hypercholesterolemia (ICD-10 - E78.00) stable, will continue current regiment Plan Of Treatment Medication Medication Name Sig Start Date Stop Date Notes metFORMIN HCl 500 MG TAKE 2 TABLETS BY M OUTH TWICE A DAY Atorvastatin Calcium 40 MG TAKE 1 TABLET BY MOUTH EVERY DAY Treatment Notes Assessment Notes Type 2 diabetes mellitus without complic ation well controlled on present med, will continue current regiment Acute systolic congestive heart failure doing well on present meds, will continue current regiment Pure hypercholesterolemia stable, will c ontinue current regiment Next Appt Details Follow Up: 3 Months, Reason: complete Provider Name:Mihir carmonar, 05/01/2025 10:15:00 AM, [address] [place] [address], [address], [phone], Provider Name:Mihir Phillips ier, 10/04/2025 07:15:00 AM, [address] [place] [address], [address], [phone], Provider Name:Mihir carmonar, 10/11/2025 10:15:00 AM, [address] [place] [address], [address], [phone], Provider Name:Mihir carmonar, 04/16/2026 07:15:00 AM, [address] [place] [address], [address], [phone], Provider Name:Mihir carmonar, 04/23/2026 09:30:00 AM, [address] [place] [address], [address], [phone], Progress Notes * Adonay LYNNE DDOB:[birth year] (84 yo M)Acc No.[id number]:01/04/2025 Progress Notes Patient: Adonay MATA Jory Provider: Iris Mccall MD :1940 A ge:84 Y S ex:Male Date:01/04/2025 Address:[address], [id number] Subjective: * Chief Complaints: * 6 MOF/U * HPI: S ymptom(s): patient is a 84 yo male here for 6 month follow up visit. * ROS: G eneral/Constitutional: Onesimoies Rob beasley. D enies F atigue. D enies F ever. D enies H eadache. E NT: Denies S ore throat. E ndocrine: Admits D [...] Tablet Extended Release 24 Hour 1 tablet Orally Once a day Atorvastatin Calcium 40 MG Tablet TAKE 1 [...] 1 TABLET BY MOUTH TWICE A DAY DIRECTED Taking Metoprolol Succinate ER 50 MG Tablet Extended Release 24 Hour 1 tablet Orally Once a day Taking Atorvastatin Calcium 40 MG [...] 1 TABLET BY MOUTH TWICE A DAY DIRECTED Not-Taking/PRNSpironolactone 25 MG Tablet 1 tablet Orally M Docusate Sodium 100 MG Capsule 1 capsule [...] tablet as needed Orally Once a day Not- Taking/PRN Spironolactone 25 MG Tablet 1 tablet Orally M Not-Taking/PRN Docusate Sodium 100 MG Capsule 1 [...] tablet as needed Orally Once a day * Allergies: C restor: myalgiaSimvastatin: myalgiayes[Allergies Verified] Objective: * Vitals: H t: 70, Wt: 170, BMI:24.39, BP:92/50, Repeat BP:100/60, Wt-k.11. * P ast Orders: L ab:Lipid Panel with Reflex (Order Date - 12/21/2024) (Collection Date & Time - 12/21/2024 07:48 AM) Value Reference Range Triglycerides 78 <150 - mg/dL Cholesterol 104 <200 - mg/dL LDL Cholesterol Calculated 38 <100 - mg/dL HDL Cholesterol 51 >40 - mg/dL L ab:Hemoglobin A1c (Order Date - 12/21/2024) (Collection Date & Time - 12/21/2024 07:48 AM) Value Reference Range Hemoglobin A1c % 6.0 <6.0 - % Estimated Average Glucose 126 - mg/dL L ab:Liver Panel (Order Date - 12/21/2024) (Collection Date & Time - 12/21/2024 07:48 AM) Value Reference Range Bilirubin Total 0.7 0.0-1.0 - mg/dL Bilirubin Direct 0.3 0.0-0.5 - mg/dL Aspartate Amino Transferase 42 H 5-37 - U/L Alanine Aminotransferase 23 0-40 - U/L Total Protein 7.3 6.5-8.0 - g/dL Albumin Level 4.3 3.5-5.0 - g/dL Alkaline Phosphatase 162 H 39-117 - U/L L ab:Glucose Fasting (Order Date - 12/21/2024) (Collection Date & Time - 12/21/2024 07:48 AM) Value Reference Range Glucose Fasting 137 H 60-99 - mg/dL * Examination: G eneral Examination: GENERAL APPEARANCE: a lert, well hydrated, in no distress.? HEAD: n ormocephalic. SKIN: g ood turgor. HEART: n o murmurs, rubs, gallops, regular rate and rhythm.? LUNGS: c lear to auscultation bilaterally, good air movement. Assessment: * Assessment: 1. T ype 2 diabetes mellitus without complication - E11.9 (Primary) 2 . A cute systolic congestive heart failure - I50.21 3 . P ure hypercholesterolemia - E78.00 Plan: * Treatment: Value Reference Range V alue 142 Notes: well controlled on present med, will continue current regiment??2.?Acute systolic congestive heart failure? Notes: doing well on present meds, will continue current regiment??3.?Pure hypercholesterolemia? Continue Atorvastatin Calcium Tablet, 40 MG, TAKE 1 TABLET BY MOUTH EVERY DAY.?? Notes: stable, will continue current regiment?? * Procedure Codes: 8 2947 ASSAY, GLUCOSE, BLOOD QUANT, Modifiers: QW * Follow Up: 3 Months (Reason: complete) * * Sign off status: Completed true * Provider: Iris Mccall MD Date: 0 01/04/2025 Generated for Erasto loya/Anatoliy/Iliritting on: 06/13/2024 01:32 PM EST History and Physical Notes * HPI (History of Present Illness) Category Sub-Category Detail Notes Category Not es Symptom(s) patient is a 84 yo male here for 6 month follow up visit Examination Category Sub-Category Detail Notes Category Not es General Examination GENERAL APPEARANCE: alert, w ell hydrated, in no distress HEAD: normocephalic HEART: no murmurs, rubs, ga llops, regular rate and rhythm LUNGS: clear to auscultatio n bilaterally, good air movement SKIN: good turgor
--- OUTSIDE RECORDS SUMMARY | 2025-03-01 02:45 | XMS_ITS ---
Author Organization Mihir Mccall MD Address [address] [place] [phone] Care Team Providers Care Events Associate Name Role Phone Mihir Mccall Primary Care Provider [phone] REASON FOR VISIT HDF Immunizations Vaccine Route Administration Date Status Comme nts Influenza High Dose IM Intramuscular 03/01/2025 Administer ed Encounters Encounter Location Date Provider Diagnosis Mihir Mccall MD [address] [place] [phone] 03/01/2025 Mihir Mccall Encounter for administration of vaccine Z23 Assessments Encounter Date Diagnosis (ICD Code) Assessment Notes Treatment Notes Treatment Clinical Notes Section Notes 03/01/2025 Encounter for administration of vaccine (ICD-10 - Z23) Plan Of Treatment Next Appt Details Provider Name:Mihir Phillips ier, 05/01/2025 10:15:00 AM, [address], [address], [place], [place], [phone], Provider Name:Mihir Phillips ier, 10/04/2025 07:15:00 AM, [address], [address], [place], [phone], Provider Name:Mihir Phillips ier, 10/11/2025 10:15:00 AM, [address], Suite [facility], [place], [phone], Provider Name:Mihir Phillips ier, 04/16/2026 07:15:00 AM, [address] [facility], Suite [facility], [place], [place], [phone], Provider Name:Mihir Phillips ier, 04/23/2026 09:30:00 AM, [address] [place] [address], Suite [facility], [place], [place], [phone], Progress Notes * Adonay LYNNE DDOB:[birth year] (84 yo M)Acc No.[id number]:03/01/2025 Progress Note Patient: Adonay MATA Provider: Iris Mccall MD :1940 A ge:84 Y S ex:Male Date:03/01/2025 Address:[address] [place] [address], [facility] Subjective: * Chief Complaints: * 1 . HDF. * Medical History: Objective: * Vitals: Assessment: * Assessment: 1. E ncounter for administration of vaccine - Z23 (Primary) Plan: * Treatment: * Immunizations: Influenza High Dose : 0.5 mL (Dose No:1) (Route: Intramuscular) given by Uma Rae , Office Staff on Left Deltoid * Procedure Codes: 9 0662 FLU VACC PRSV FREE INC ANTIG, G0008 ADMN FLU VAC NO FEE SCHED SAME DAY * * The named appointment provid er may or may not be the originator of this progress note, and it is not deemed complete until electronically signed by the appointment provider. Sign off status: Pending * Provider: Iris Mccall MD Date: 1 Generated for Erasto loya/Anatoliy/Samir on: 06/13/2024 01:32 PM EST
--- OUTSIDE RECORDS SUMMARY | 2025-04-06 03:00 | XMS_ITS ---
Author Organization Mihir Mccall MD Address [address] [place], [place] [id number] Care Team Providers Care Vortex Operator Name Role Phone Mihir Mccall Primary Care Provider [phone] Results Component Value Reference Range Notes Complete Blood Count Auto Di ff Reviewed date:04/13/2025 11:06:57 AM Interpretation:04-13-2025 Performing Lab:, [address] [place] [phone] Notes/Report: White Blood Count 7.9 4.8-10.8 X10*3/uL Red Blood Count 4.93 4.60-5.80 X10*6/uL Hemoglobin 9.2 14.0-18.0 g/dl Hematocrit 33.9 42.0-52.0 % Mean Corpuscular Volume 68.8 80.0-98.0 fL Mean Corpuscular Hemoglobin 18.7 27.0-33.0 pg Mean Corpuscular HGB Conc 27.1 31.0-36.0 g/dl Red Cell Distribution Width 19.9 11.0-16.0 % Platelet Count 162 160-400 X10*3/uL Neutrophils Percent Auto 50.6 45-73 % Imm Gran Pct Auto 0.3 0.0-0.4 % Lymphocytes Percent Auto 33.2 20-40 % Monocytes Percent Auto 11.1 2-11 % Eosinophils Percent Auto 3.5 0-4 % Basophils Percent Auto 1.3 0-2 % NRBC Pct Auto 0.0 0.0-0.2 /100WBC Neutrophils Absolute Auto 4.0 2.0-8.3 x10*3/u L Imm Gran Abs Auto 0.02 0.00-0.03 X10*3/uL Lymphocytes Absolute Auto 2.6 1.2-4.9 X10*3/u L Monocytes Absolute Auto 0.9 0.1-1.2 X10*3/uL Eosinophils Absolute Auto 0.3 0.0-0.4 X10*3/u L Basophils Absolute Auto 0.1 0.0-0.2 X10*3/uL NRBC Abs Auto 0.000 0.0-0.012 X10*3/uL Lipid Panel Reviewed date:04/06/2025 12:16:52 PM Interpretation: Performing Lab:, [address] [place] [phone] Notes/Report: Triglycerides 77 <150 mg/dL Desirable Triglyceride: less than 150 mg/dL Borderline High Triglyceride 150-199 mg/dL High Triglyceride: 200-499 mg/dL Very High Triglyceride: greater than or equal to 5OO mg/dL Cholesterol 100 <200 mg/dL Desirable Cholesterol: less than 200 mg/dL Borderline High Cholesterol: 200-239 mg/dL High Cholesterol: greater than 239 mg/dL LDL Cholesterol Calculated 40 <100 mg/dL Desirable LDL: less than 100 mg/dL Near Optimal/Above Optimal LDL: 110-129 mg/dL Borderline High LDL: 130-159 mg/dL High LDL: 160-189 mg/dL Very High LDL: greater than or equal to 190 mg/dL HDL Cholesterol 45 >40 mg/dL Desirable HDL: greater than 40 mg/dL Note: This HDL assay may give artificially low results in patients with liver disease. PSA,Total (Free>4and<10) Reviewed date:04/06/2025 12:38:05 PM Interpretation: Performing Lab:[address] [phone] Notes/Report: PSA,Total (Free>4and<10) 1.38 0.00-4.00 ng/mL A Free PSA was not performed: The percentage of Free PSA can be used to enhance the differentiation of prostate cancer from benign prostatic disease in subjects whose PSA levels are between 4.0 and 10.0 ng/mL. For subjects whose PSA levels are below 4.0 or above 10.0 ng/mL, the risk of prostate cancer is determined on the basis of the PSA alone. Therefore the % Free PSA is recommended only for those subjects whose PSA levels are between 4.0 and 10.0 ng/mL. PSA methodology: Knox Alinity i Chemiluminescent Microparticle Immunoassay (CMIA) Microalbumin, Random Reviewed date:04/06/2025 12:51:17 PM Interpretation: Performing Lab:[address] [phone] Notes/Report: Creatinine Urine 153.20 Microalbumin Urine 669.0 Microalbum/Creatinine Ratio Ur 436.6 <30 ug/mg cr Albumin/Creatinine Ratio Reference Ranges: Normal: < 30 ug/mg creatinine Microalbuminuria: 30 - 300 ug/mg creatinine Clinical Albuminuria: > 300 ug/mg creatinine Hemoglobin A1c Reviewed date:04/06/2025 12:18:17 PM Interpretation: Performing Lab:[address] [phone] Notes/Report: Hemoglobin A1c % 6.5 <6.0 % Hemoglobin A1C Reference Range Adults: 4.8 - 6.0 % Non diabetic: < 6.0 % Goal: < 7.0 % Additional Action Suggested: > 8.0 % Note: Hemoglobin A1c results are invalid for patients with abnormal amounts of HbF. Blood transfusions may impact the HbA1c concentration in the patient sample. Estimated Average Glucose 140 eAG = Estimated average glucose which is %A1C expressed as average glucose, using the formula of the [id number] Average Glucose study (ADAG), Diabetes Care, Vol.31,#8, Dec. 2007 UA ClnCatch+Micro w/rflx Cul t Reviewed date:04/06/2025 12:49:05 PM Interpretation: Performing Lab:, [address] [place] [phone] Notes/Report: Urine, Clean Catch Color Urine Cummings Appearance Urine Cloudy PH 6.0 5.0-9.0 Glucose Urine UA Negative Negative mg/dL Urine Blood Large (3+) Negative Specific [place] - Urine 1.025 1.005-1.025 Urine Protein 300 (3+) Neg-Trace mg/dL Urine Ketones Negative Negative mg/dL Nitrite Urine Positive Negative Leukocyte Esterase Urine Large (3+) Negative RBC Urine >20 0-2 /HPF WBC Urine >50 0-5 /HPF Squamous Epithelial Cell Urine 0-2 0-2 /HPF Bacteria Urine 4+ None Seen Hyaline Casts Urine 0-2 0-2 /LPF REASON FOR VISIT FASTING LABS Encounters Encounter Location Date Provider Diagnosis Mihir Mccall MD [address] [place] [address] [place] [phone] 04/06/2025 Mihir Mccall Type 2 diabetes julian itus without complication E11.9 ; Acute systolic congestive heart failure I50.21 ; Pure hypercholesterolemia E78.00 and Prostatism N40.0 Assessments Encounter Date Diagnosis (ICD Code) Assessment Notes Treatment Notes Treatment Clinical Notes Section Notes 04/06/2025 Type 2 diabetes julian itus without complication (ICD-10 - E11.9) 04/06/2025 Acute systolic congestive heart failure (ICD-10 - I50.21) 04/06/2025 Pure hypercholesterolemia (ICD-10 - E78.00) 04/06/2025 Prostatism (ICD-10 - N40.0) Plan Of Treatment Pending Test Test Name Order Date Comprehensive [place]. Panel Fast Next Appt Details Provider Name:Mihir hemphill, 05/01/2025 10:15:00 AM, [address] [place] [address], [address], [phone], Provider Name:Mihir hemphill, 10/04/2025 07:15:00 AM, [address] [place] [address], [address], [phone], Provider Name:Mihir Phillips ier, 10/11/2025 10:15:00 AM, [address], [address], [place], [phone], Provider Name:Mihir Phillips ier, 04/16/2026 07:15:00 AM, [address], [address], [place], [phone], Provider Name:Mihir Phillips ier, 04/23/2026 09:30:00 AM, [address], [address], [place], [phone], Progress Notes * MAGEDAdonay DDOB:[birth year] (84 yo M)Acc No.[id number]:04/06/2025 Progress Note Patient: Adonay MATA Provider: Iris Mccall MD :1940 A ge:84 Y S ex:Male Date:04/06/2025 Address:[address] [place] [address], [id number] Subjective: * Chief Complaints: * 1 . FASTING LABS. * Medical History: Objective: * Vitals: Assessment: * Assessment: 1. T ype 2 diabetes mellitus without complication - E11.9 (Primary) 2 . A cute systolic congestive heart failure - I50.21 3 . P ure hypercholesterolemia - E78.00 4 . P rostatism - N40.0 Plan: * Treatment: 2. A cute systolic congestive heart failure L AB: Comprehensive [place]. Panel Fast L AB: Complete Blood Count Auto Diff (Collection Date & Time - 04/06/2025 08:00 AM) L AB: Lipid Panel (Collection Date & Time - 04/06/2025 08:00 AM) L AB: PSA,Total (Free>4and<10) (Collection Date & Time - 04/06/2025 08:00 AM) L AB: Microalbumin, Random (Collection Date & Time - 04/06/2025 08:00 AM) L AB: Hemoglobin A1c (Collection Date & Time - 04/06/2025 08:00 AM) L AB: UA ClnCatch+Micro w/rflx Cult (Collection Date & Time - 04/06/2025 08:00 AM) 3. P ure hypercholesterolemia L AB: [facility] [place]. Panel Fast L AB: Complete Blood Count Auto Diff (Collection Date & Time - 04/06/2025 08:00 AM) L AB: Lipid Panel (Collection Date & Time - 04/06/2025 08:00 AM) L AB: PSA,Total (Free>4and<10) (Collection Date & Time - 04/06/2025 08:00 AM) L AB: Microalbumin, Random (Collection Date & Time - 04/06/2025 08:00 AM) L AB: Hemoglobin A1c (Collection Date & Time - 04/06/2025 08:00 AM) L AB: UA ClnCatch+Micro w/rflx Cult (Collection Date & Time - 04/06/2025 08:00 AM) 4. P rostatism L AB: Comprehensive [place]. Panel Fast L AB: Complete Blood Count Auto Diff (Collection Date & Time - 04/06/2025 08:00 AM) L AB: Lipid Panel (Collection Date & Time - 04/06/2025 08:00 AM) L AB: PSA,Total (Free>4and<10) (Collection Date & Time - 04/06/2025 08:00 AM) L AB: Microalbumin, Random (Collection Date & Time - 04/06/2025 08:00 AM) L AB: Hemoglobin A1c (Collection Date & Time - 04/06/2025 08:00 AM) L AB: UA ClnCatch+Micro w/rflx Cult (Collection Date & Time - 04/06/2025 08:00 AM) * Procedure Codes: 3 6415 VENIPUNCT, ROUTINE* * * The named appointment provid er may or may not be the originator of this progress note, and it is not deemed complete until electronically signed by the appointment provider. Sign off status: Pending * Provider: Iris Mccall MD Date: 06/06/2024 Generated for Erasto loya/Anatoliy/Samir on: 06/13/2024 01:30 PM EST
--- OUTSIDE RECORDS SUMMARY | 2025-04-09 07:32 | XMS_ITS ---
Author Organization Mihir Mccall MD Address [address] [place] [phone] Care Team Providers Care Kettle Worker Name Role Phone Mihir Mccall Primary Care Provider Medications Medication SIG (Take, Route, Frequency, Duration) Notes Start Date End Date Status Cipro 500 MG 1 tablet Orally every 12 hrs for 5 days 04/09/2025 Active Encounters Encounter Location Date Provider Diagnosis Mihir Mccall MD [address] [place], [place] [phone] 04/09/2025 Mihir Mccall Plan Of Treatment Medication Medication Name Sig Start Date Stop Date Notes Cipro 500 MG 1 tablet Orally every 12 hrs for 5 days 04/09 Next Appt Details Provider Name:Mihir Phillips ier, 05/01/2025 10:15:00 AM, [address] [facility], [address], [place], [place], [phone], Provider Name:Mihir Phillips ier, 10/04/2025 07:15:00 AM, [address] [place] [address], [address], [place], [place], [phone], Provider Name:Mihir Phillips ier, 10/11/2025 10:15:00 AM, [address] [place] [address], [address] [facility], [place], [place], [phone], Provider Name:Mihir Phillips ier, 04/16/2026 07:15:00 AM, [address] [place] [address], Suite [facility], [place], [place], [phone], Provider Name:Mihir Phillips ier, 04/23/2026 09:30:00 AM, [address] [place] [address], Suite [facility], [place], [place], [phone], Progress Notes * Adonay LYNNE DDOB:[birth year] (84 yo M)Acc No.[id number]:04/09/2025 Patient: Iris VENTURAAdonay :1940 A ge:84 Y S ex:Male Address:[address], [place] [address] * Refills Start Cipro Tablet, 500 MG, Orally, 10 Tablet, 1 tablet, every 12 hrs, 5 days * true * Date: Generated for Erasto loya/Anatoliy/eTransmitting on: 06/13/2024 01:30 PM EST
--- OUTSIDE RECORDS SUMMARY | 2025-04-13 04:30 | XMS_ITS ---
Author Organization Mihir Mccall MD Address [address] [place], [place] [id number] Care Team Providers Care Special Police Name Role Phone Mihir Mccall Primary Care Provider Allergies Allergen (clinical drug ingredient) Drug/Non Drug Allergy documented on EMR Reaction Allergy Type Onset Date Status simvastatin Simvastatin myalgia Drug Allergy Act corwin rosuvastatin Crestor myalgia Drug Allergy Acti ve REASON FOR VISIT COMP EXAM/ must CBC, c/o ' marian red blood after voiding Medications Medication SIG (Take, Route, Frequency, Duration) Notes Start Date End Date Status Digoxin 125 MCG TAKE 1 TABLET BY SERVANDO TH EVERY DAY FOR 90 DAYS Active Eliquis 5 MG TAKE 1 TABLET BY SERAVNDO TH TWICE A DAY DIRECTED Active Pantoprazole Sodium 40 MG TAKE 1 TABLET BY MOUTH TWICE A DAY for 90 Active Atorvastatin Calcium 40 MG TAKE 1 TABLET BY MOUTH EVERY DAY Active metFORMIN HCl 500 MG TAKE 2 TABLETS BY M OUTH TWICE A DAY Active Furosemide 20 MG 1 tablet once a day Orally Once a day Active Metoprolol Succinate ER 50 MG 1 tablet Orally Once a day Active Tamsulosin HCl 0.4 MG TAKE 1 CAPSULE BY MOUTH EVERY DAY Active Cipro 500 MG 1 tablet Orally ever y 12 hrs for 5 days 04/09/2025 Active Social History Tobacco Use: Social History Observation Description Date Details (start date - stop date) Former Smoker NA - NA Tobacco Use/Smoking Question Answer Notes Patient is a former smoker When did you start smoking? at age 18 How long has it been since y ou last smoked? > 10 years Additional Findings: Tobacco Non-User Fo rmer smoker, currently using no form of tobacco Alcohol Screen Question Answer Notes Did you have a drink contain ing alcohol in the past year? Yes How often did you have a dri nk containing alcohol in the past year? Monthly or less (1 point) How many drinks did you have on a typical day when you were drinking in the past year? 1 or 2 drinks (0 point) How often did you have 6 or more drinks on one occasion in the past year? Never (0 point) Points 1 Interpretation Negative Problems Problem Type SNOMED Code ICD Code Onset Dates Problem Status W/U Status Risk Notes Problem Microcytic anemia (620166888) Microcytic anemia (D50.9) Active confirmed Vital Signs Blood pressure systolic 92 mm Hg 04/13/20 25 Blood pressure diastolic 48 mm Hg 025 Height 70 in 04/13/2025 Weight 166 lbs 04/13/2025 BMI 23.82 kg/m2 04/13/2025 weight is down 4 pounds [facility] e 01-04-25 Encounters Encounter Location Date Provider Diagnosis Mihir Mccall MD [address] [place], [place] [id number] 04/13/2025 Mihir Mccall Hematuria R31.9 ; Microcytic anemia D50.9 ; Type 2 diabetes mellitus without complication E11.9 ; 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 ; Pure hypercholesterolemia E78.00 ; Prostatism N40.0 ; Persistent atrial fibrillation I48.19 ; Chronic systolic heart failure I50.22 ; Colon cancer screening Z12.11 and Depression screening Z13.31 Assessments Encounter Date Diagnosis (ICD Code) Assessment Notes Treatment Notes Treatment Clinical Notes Section Notes 04/13/2025 Hematuria (ICD-10 - R31.9) need notes from dr turner/ request will be sent z 04/13/2025 Microcytic anemia (ICD-10 - D50.9) will continnue to monitor z 04/13/2025 Type 2 diabetes julian itus without complication (ICD-10 - E11.9) doing well with no complaints, will continue current regiment z 04/13/2025 Malignant neoplasm o f posterior wall of urinary bladder (ICD-10 - C67.4) had recent cystoscopy z 04/13/2025 Pure hypercholesterolemia (ICD-10 - E78.00) stable, will contnue current regiment z 04/13/2025 Prostatism (ICD-10 - N40.0) stable, will continue to monitor z 04/13/2025 Persistent atrial fibrillation (ICD-10 - I48.19) will continue current regiment z 04/13/2025 Chronic systolic hea rt failure (ICD-10 - I50.22) stable, will continue current regiment z 04/13/2025 Colon cancer screeni ng (ICD-10 - Z12.11) guaiac negative z 04/13/2025 Depression screening (ICD-10 - Z13.31) negative screen z Plan Of Treatment Medication Medication Name Sig Start Date Stop Date Notes Digoxin 125 MCG TAKE 1 TABLET BY SERVANDO TH EVERY DAY FOR 90 DAYS Eliquis 5 MG TAKE 1 TABLET BY SERVANDO TH TWICE A DAY DIRECTED Atorvastatin Calcium 40 MG TAKE 1 TABLET BY MOUTH EVERY DAY metFORMIN HCl 500 MG TAKE 2 TABLETS BY M OUTH TWICE A DAY Furosemide 20 MG 1 tablet once a day Orally Once a day Metoprolol Succinate ER 50 MG 1 tablet Orally Once a day Tamsulosin HCl 0.4 MG TAKE 1 CAPSULE BY MOUTH EVERY DAY Treatment Notes Assessment Notes Hematuria need notes from dr [place]/ request will be sent Microcytic anemia will continnue to mo leonardo Type 2 diabetes mellitus without complic ation doing well with no complaints, will continue current regiment Malignant neoplasm of research professor ior wall of urinary bladder had recent cystoscopy Pure hypercholesterolemia stable, will c ontnue current regiment Prostatism stable, will continu e to monitor Persistent atrial fibrillation will cont inue current regiment Chronic systolic heart failure stable, w ill continue current regiment Colon cancer screening guaiac negative Depression screening negative screen Pending Test Test Name Order Date Occult Blood, Stool, Guaiac 04/13/2025 Complete Blood Count Auto Diff IRON PROFILE 04/13/2025 Next Appt Details Follow Up: 3 Weeks, Reason: Provider Name:Mihir Phillips ier, 05/01/2025 10:15:00 AM, [address] [place] [address], [address] [place] [address], [phone], Provider Name:Mihir Phillips ier, 10/04/2025 07:15:00 AM, [address] [place] [address], [address], [phone], Provider Name:Mihir Phillips ier, 10/11/2025 10:15:00 AM, [address] [place] [address], [address], [phone], Provider Name:Mihir Phillips ier, 04/16/2026 07:15:00 AM, [address] [place] [address], [address], [phone], Provider Name:Mihir Phillips ier, 04/23/2026 09:30:00 AM, [address] [place] [address], [address], [phone], Progress Notes * Adonay LYNNE DDOB:[birth year] (84 yo M)Acc No.[id number]:04/13/2025 Patient: Adonay MATA Provider: Iris Mccall MD :1940 A ge:84 Y S ex:Male Date:04/13/2025 Address:[facility] [address], [id number] Subjective: * Chief Complaints: * 1 . COMP EXAM/ must CBC. 2. C/o ' marian red blood after voiding. * HPI: D epression Screening: PHQ-9 L ittle interest or pleasure in doing things N ot at all, F eeling down, depressed, or hopeless N ot at all, T rouble falling or staying asleep, or sleeping too much N ot at all, F eeling tired or having little energy N ot at all, P oor appetite or overeating N ot at all, F eeling bad about yourself or that you are a failure, or have let yourself or your family down N ot at all, T rouble concentrating on things, such as reading the newspaper or watching television N ot at all, M oving or speaking so slowly that other people could have noticed; or the opposite, being so fidgety or restless that you have been moving around a lot more than usual N ot at all, T houghts that you would be better off or of hurting yourself in some way N ot at all, T otal Score 0 . I nterpretation and Intervention D epression Screening Findings N egative, F ollow-Up for Depression : review of PHQ-9 found negative result, no follow-up needed. C ommunication Needs: Communication Needs D oes the patient have a hearing impairment Y es, I f yes, what is the hearing impairment? H elier of hearing, Hearing Aids, D oes the patient have a vision impairment? Y es, I f yes, what is the vision impairment? G lasses, D oes the patient have a cognition impairment? N o. F all Risk: History H ave you had any falls with injury in the past year? N o, H ave you had two or more falls in the past year? N o. S DERRICK Questions: SDOH Questions I n the past year have you been worried about losing housing? N o, I n the past year have you or any family members you live with been unable to get any of the following when it was really needed? Check all that apply: N one. S ymptom(s): patient is a 84 yo male here for review of recent labs and follow up of chronic issues h aving pain down leg to foot. having blood in urine. toilet was marian red. * ROS: G eneral/Constitutional: Change in appetite d enies. C hills d enies. F ever d enies. O phthalmologic: Blurred vision d enies. D ischarge d enies. P ain d enies. E NT: Decreased hearing d enies. S ore throat d enies.?Swollen glands d enies. E ndocrine: Cold intolerance d enies. E xcessive thirst d enies. H eat intolerance d enies. W eight loss d enies. R espiratory: Cough d enies. S hortness of breath at rest d enies. S hortness of breath with exertion d enies. W heezing d enies. C ardiovascular: Chest pain at rest d enies. C hest pain with exertion?denies. I rregular heartbeat d enies. S hortness of breath d enies. ? G astrointestinal: Abdominal pain d enies. C hange in bowel habits d enies. D iarrhea d enies. N ausea d enies. R ectal bleeding d enies. V omiting d enies . G enitourinary: Blood in urine d enies. D ifficulty urinating d enies. F requent urination d enies. M usculoskeletal: Painful joints d enies. W eakness d enies. ? S kin: Dry skin d enies. I tching d enies. D enies?Mole(s), changes in moles, new moles or any lesions of concern. D enies P hotosensitivity. R shravan d enies. N eurologic: Dizziness d enies. F ainting d enies. H eadache?denies. * Medical History: D iabetes mellitus, Colonoscopy 2007 , 09/26/2010 due in 2016; colonoscopy done 08/29/15 w/dr easley - repeat 5 yrs, Ct 2011 with no change, Poba 2017 plain old balloon angioplasty, Lung nodule had been folowed years ago. * Family History: F ather: 89 yrs, diagnosed with Alzheimer disease. M other: 76 yrs, diagnosed with Diabetes. 1 sister(s) . 1 son(s) , 1 daughter(s) . . 2 brothers 1 sister 64 Brain tumor 1 sister 90, Denies mental health/substance abuse family history. * Social History: T obacco Use: T obacco Use/Smoking P atient is a f ormer smoker, W hen did you start smoking? a t age 18, H ow long has it been since you last smoked? > 10 years, A dditional Findings: Tobacco Non-User F ormer smoker, currently using no form of tobacco. D rugs/Alcohol: A lcohol Screen D id you have a drink containing alcohol in the past year? Y es, H ow often did you have a drink containing alcohol in the past year? M onthly or less (1 point), H ow many drinks did you have on a typical day when you were drinking in the past year? 1 or 2 drinks (0 point), H ow often did you have 6 or more drinks on one occasion in the past year? N ever (0 point), P oints 1 , I nterpretation N egative. M iscellaneous: C affeine: no. Children: yes. Community involvements: no. Exercise: no. Home smoke detector use: yes. Housing: living with relatives. Living with: spouse. Marital status: . Occupation: retired. Pets: none. * Medications: T aking Metoprolol Succinate ER 50 MG Tablet Extended Release 24 Hour 1 tablet Orally Once a day , Taking Tamsulosin HCl 0.4 MG Capsule TAKE 1 CAPSULE BY MOUTH EVERY DAY , Taking Pantoprazole Sodium 40 MG Tablet Delayed Release TAKE 1 TABLET BY MOUTH TWICE A DAY , Taking Furosemide 20 MG Tablet 1 tablet once a day Orally Once a day , Taking Eliquis 5 MG Tablet TAKE 1 TABLET BY MOUTH TWICE A DAY DIRECTED , Taking Atorvastatin Calcium 40 MG Tablet TAKE 1 TABLET BY MOUTH EVERY DAY , Taking metFORMIN HCl 500 MG Tablet TAKE 2 TABLETS BY MOUTH TWICE A DAY , Taking Digoxin 125 MCG Tablet TAKE 1 TABLET BY MOUTH EVERY DAY FOR 90 DAYS , Taking Cipro 500 MG Tablet 1 tablet Orally every 12 hrs , Medication List reviewed and reconciled with the patient * Allergies: C restor: myalgia, Simvastatin: myalgia. Objective: * Vitals: H t: 70, Wt: 166, BMI:23.82, BP:92/48, Wt-k.3. weight is down 4 pounds since 01-04-25. * P ast Orders: L ab:Microalbumin, Random (Order Date - 04/06/2025) (Collection Date & Time - 04/06/2025 08:00 AM) Value Reference Range Creatinine Urine 153.20 - mg/dL Microalbumin Urine 669.0 - mg/L Microalbum Creatinine Ratio Ur 436.6 H <30 - ug/ mg cr L ab:Hemoglobin A1c (Order Date - 04/06/2025) (Collection Date & Time - 04/06/2025 08:00 AM) Value Reference Range Hemoglobin A1c % 6.5 H <6.0 - % Estimated Average Glucose 140 - mg/dL L ab:UA ClnCatch+Micro w/rflx Cult (Order Date - 04/06/2025) (Collection Date & Time - 04/06/2025 08:00 AM) Value Reference Range Color Urine [place] - Appearance Urine Cloudy - PH 6.0 5.0-9.0 - Glucose Urine UA Negative Negative - mg/dL Urine Blood Large (3+) A Negative - Specific [place] - Urine 1.025 1.005-1.025 - Urine Protein 300 (3+) A Neg-Trace - mg/dL Urine Ketones Negative Negative - mg/dL Nitrite Urine Positive A Negative - Leukocyte Esterase Urine Large (3+) A Negative - RBC Urine >20 A 0-2 - /HPF WBC Urine >50 A 0-5 - /HPF Squamous Epithelial Cell Urine 0-2 0-2 - /HP F Bacteria Urine 4+ None Seen - Hyaline Casts Urine 0-2 0-2 - /LPF L ab:Lipid Panel (Order Date - 04/06/2025) (Collection Date & Time - 04/06/2025 08:00 AM) Value Reference Range Triglycerides 77 <150 - mg/dL Cholesterol 100 <200 - mg/dL LDL Cholesterol Calculated 40 <100 - mg/dL HDL Cholesterol 45 >40 - mg/dL L ab:Comprehensive Met. Panel (Order Date - 04/06/2025) (Collection Date & Time - 04/06/2025 08:00 AM) Value Reference Range Sodium 143 135-145 - mmol/L Bilirubin Total 0.5 0.0-1.0 - mg/dL Aspartate Amino Transferase 38 H 5-37 - U/L Alanine Aminotransferase 15 0-40 - U/L Total Protein 6.9 6.5-8.0 - g/dL Albumin Level 4.1 3.5-5.0 - g/dL Alkaline Phosphatase 98 39-117 - U/L Potassium 4.2 3.3-5.1 - mmol/L Chloride 106 96-108 - mmol/L Carbon Dioxide 27 22-29 - mmol/L Anion Gap 14 12-20 - Blood Urea Nitrogen 28 H 9-16 - mg/dL Creatinine 0.94 0.5-1.4 - mg/dL Estimated Glomerular Filt Rate > 60 - Glucose Random 126 H 60-115 - mg/dL Calcium 9.3 8.4-10.2 - mg/dL L ab:PSA,Total (Free>4and<10) (Order Date - 04/06/2025) (Collection Date & Time - 04/06/2025 08:00 AM) Value Reference Range PSA,Total (Free>4and<10) 1.38 0.00-4.00 - ng/ mL L ab:Urine Culture (Order Date - 04/06/2025) (Collection Date & Time - 04/06/2025) Value Reference Range O:ESCCOL Escherichia coli - Urine Culture > 100,000 cfu/mL - Ampicillin 4 S - Ceftriaxone <=0.25 S - Gentamicin <=1 S - Nitrofurantoin <=16 S - Trimethoprim/Sulfamethoxazole <=20 S - Cefepime <=0.12 S - Ciprofloxacin <=0.06 S - Cefazolin (Urine) <=1 S - * Examination: G eneral Examination: GENERAL APPEARANCE: w ell developed, well nourished, in no acute distress. HEAD: n ormocephalic, atraumatic. EYES: p upils equal, round, reactive to light and accommodation, sclera non-icteric. EARS: n ormal. ORAL CAVITY: m ucosa moist. THROAT: c lear. NECK/THYROID: n carroll supple, full range of motion, no cervical lymphadenopathy, no bruits. SKIN: w arm and dry, no suspicious lesions. HEART: r egular rate and rhythm, S1, S2 normal, no murmurs.? LUNGS: c lear to auscultation bilaterally. ABDOMEN: s oft, nontender, nondistended, bowel sounds present, normal, no organomegaly , no masses palpable. RECTAL EXAM: n ormal tone, no external hemorrhoids, no masses palpable, prostate normal, stool guaiac negative. MALE GENITOURINARY: n ot examined. EXTREMITIES: n o clubbing, cyanosis, or edema. NEUROLOGIC: n onfocal, motor strength normal upper and lower extremities, sensory exam intact. Assessment: * Assessment: 1. H ematuria - R31.9 (Primary) 2 . M icrocytic anemia - D50.9 ?3. T ype 2 diabetes mellitus without complication - E11.9 4 . M alignant neoplasm of posterior wall of urinary bladder - C67.4 5 . P ure hypercholesterolemia - E78.00 6 . P rostatism - N40.0 7 . P ersistent atrial fibrillation - I48.19 8 . C hronic systolic heart failure - I50.22 9 . C olon cancer screening - Z12.11 1 0. D epression screening - Z13.31 z Plan: * Treatment: 2. M icrocytic anemia Notes: will continnue to monitor 3. T ype 2 diabetes mellitus without complication Continue metFORMIN HCl Tablet, 500 MG, TAKE 2 TABLETS BY MOUTH TWICE A DAY. Notes: doing well with no complaints, will continue current regiment 4. M alignant neoplasm of posterior wall of urinary bladder Notes: had recent cystoscopy 5. P ure hypercholesterolemia Continue Atorvastatin Calcium Tablet, 40 MG, TAKE 1 TABLET BY MOUTH EVERY DAY. Notes: stable, will contnue current regiment 6. P rostatism Continue Tamsulosin HCl Capsule, 0.4 MG, TAKE 1 CAPSULE BY MOUTH EVERY DAY. Notes: stable, will continue to monitor 7. P ersistent atrial fibrillation Continue Metoprolol Succinate ER Tablet Extended Release 24 Hour, 50 MG, 1 tablet, Orally, Once a day; C ontinue Eliquis Tablet, 5 MG, TAKE 1 TABLET BY MOUTH TWICE A DAY DIRECTED. Notes: will continue current regiment 8. C hronic systolic heart failure Continue Furosemide Tablet, 20 MG, 1 tablet once a day, Orally, Once a day; C ontinue Digoxin Tablet, 125 MCG, TAKE 1 TABLET BY MOUTH EVERY DAY FOR 90 DAYS. Notes: stable, will continue current regiment 9. C olon cancer screening L AB: Occult Blood, Stool, Guaiac Notes: guaiac negative 10. D epression screening Notes: negative screen * Procedure Codes: 3 6415 VENIPUNCT, ROUTINE*, 98201 TEST FOR BLOOD, FECES * Preventive Medicine: Diabetes Care Plan: P atient Lifestyle Goals N eeds to maintain diet control.?Treatment Goals A 1C< 7. B arriers N o specific barriers, doing well. E xpected Outcome m aintaining stable blood sugar levels within a target range. CHF Care Plan: P atient Lifestyle Goals R elieve symptoms and improve quality of life. T reatment Goals T eric medicine exactly as directed and plan for RX refills. B arriers N o Specific barriers. S elf-Managment Goals M onitor your symptoms daily. E xpected Outcome m anaging symptoms like shortness of breath and fatigue. * Follow Up: 3 Weeks * * The named appointment provid er may or may not be the originator of this progress note, and it is not deemed complete until electronically signed by the appointment provider. Sign off status: Pending * Provider: Iris Mccall MD Date: 06/13/2024 Generated for Erasto loya/Anatoliy/Samir on: 06/13/2024 01:31 PM EST History and Physical Notes * HPI (History of Present Illness) Category Sub-Category Detail Notes Category Not es Symptom(s) patient is a 84 yo male here for review of recent labs and follow up of chronic issues having pain down leg to foot. having blood in urine. toilet was marian red Depression Screening PHQ-9 Little inte rest or pleasure in doing things: Not at all Feeling down, depressed, or hopeless: No t at all Trouble falling or staying asleep, or sl eeping too much: Not at all Feeling tired or having little energy: N ot at all Poor appetite or overeating: Not at all Feeling bad about yourself o r that you are a failure, or have let yourself or your family down: Not at all Trouble concentrating on thi ngs, such as reading the newspaper or watching television: Not at all Moving or speaking so slowly that other people could have noticed; or the opposite, being so fidgety or restless that you have been moving around a lot more than usual: Not at all Thoughts that you would be b aline off or of hurting yourself in some way: Not at all Total Score: 0 Interpretation and Intervention Depression Khang alexis Findings: Negative Follow-Up for Depression: : review of PH Q-9 found negative result, no follow-up needed SDOH Questions SDOH Questions In the past year have you been worried about losing housing?: No In the past year have you or any family members you live with been unable to get any of the following when it was really needed? Check all that apply:: None Fall Risk History Have you had any falls with injury i n the past year?: No Have you had two or more falls in the year?: No Communication Needs Communication Needs Does the patient have a hearing impairment: Yes If yes, what is the hearing impairment?: Hard of hearing, Hearing Aids Does the patient have a vision impairmen t?: Yes If yes, what is the vision impairment?: Glasses Does the patient have a cognition impair ment?: No Examination Category Sub-Category Detail Notes Category Not es General Examination GENERAL APPEARANCE: well dev eloped, well nourished, in no acute distress HEAD: normocephalic, atrau matic EYES: pupils equal, round, reactive to light and accommodation, sclera non-icteric EARS: normal THROAT: clear NECK/THYROID: neck supple, full ra nge of motion, no cervical lymphadenopathy, no bruits HEART: regular rate and rhy thm, S1, S2 normal, no murmurs LUNGS: clear to auscultatio n bilaterally ABDOMEN: soft, nontender, non distended, bowel sounds present, normal, no organomegaly , no masses palpable NEUROLOGIC: nonfocal, motor stre ngth normal upper and lower extremities, sensory exam intact SKIN: warm and dry, no prema picious lesions EXTREMITIES: no clubbing, cyanosi s, or edema MALE GENITOURINARY: not examined RECTAL EXAM: normal tone, no exte rnal hemorrhoids, no masses palpable, prostate normal, stool guaiac negative ORAL CAVITY: mucosa moist
--- OUTSIDE RECORDS SUMMARY | 2025-04-13 13:31 | XMS_ITS | Patient Health Record ---
Author Organization Mihir Mccall MD Address [address] [place], [place] [id number] Care Team Providers Care Waste Collection Driver Name Role Phone Mihir Mccall Primary Care Provider Allergies Allergen (clinical drug ingredient) Drug/Non Drug Allergy documented on EMR Reaction Allergy Type Onset Date Status simvastatin Simvastatin myalgia Drug Allergy Act corwin rosuvastatin Crestor myalgia Drug Allergy Acti ve Results Component Value Reference Range Notes Hemoglobin A1c Reviewed date:06/23/2024 02:02:33 PM Interpretation: Performing Lab: Notes/Report: Hemoglobin A1c 6.7 Hemoglobin A1c Reviewed date:10/31/2024 02:39:19 PM Interpretation: Performing Lab: Notes/Report: Hemoglobin A1c 5.9 Complete Blood Count Auto Di ff Reviewed date:04/13/2025 11:06:57 AM Interpretation:04-13-2025 Performing Lab:[facility], [address] [place] [phone] Notes/Report: White Blood Count 7.9 4.8-10.8 X10*3/uL [...] Panel Reviewed date:04/06/2025 12:16:52 PM Interpretation: Performing Lab:[facility], [address] [place] [phone] Notes/Report: Triglycerides 77 <150 mg/dL Desirable Triglyceride: [...] (Free>4and<10) Reviewed date:04/06/2025 12:38:05 PM Interpretation: Performing Lab:[address] [phone] Notes/Report: PSA,Total (Free>4and<10) 1.38 0.00-4.00 ng/mL A [...] Random Reviewed date:04/06/2025 12:51:17 PM Interpretation: Performing Lab:[facility], [address] [place] [phone] Notes/Report: Creatinine Urine 153.20 Microalbumin Urine 669.0 Microalbum/Creatinine Ratio Ur 436.6 <30 ug/mg cr Albumin/Creatinine Ratio Reference Ranges: Normal: < 30 ug/mg creatinine Microalbuminuria: 30 - 300 ug/mg creatinine Clinical Albuminuria: > 300 ug/mg creatinine Hemoglobin A1c Reviewed date:04/06/2025 12:18:17 PM Interpretation: Performing Lab:[address] [phone] Notes/Report: Hemoglobin A1c % 6.5 <6.0 % [...] average glucose, using the formula of the O0Z-Nuvnzad Average Glucose study (ADAG), Diabetes Care, Vol.31,#8, Dec. 2007 UA ClnCatch+Micro w/rflx Cul t Reviewed date:04/06/2025 12:49:05 PM Interpretation: Performing Lab:[facility], [address] [place] [phone] Notes/Report: Urine, Clean Catch Color Urine Dent Appearance Urine Cloudy PH 6.0 5.0-9.0 Glucose Urine UA Negative Negative mg/dL Urine Blood Large (3+) Negative Specific [place] - Urine 1.025 1.005-1.025 Urine Protein 300 (3+) Neg-Trace mg/dL Urine Ketones Negative Negative mg/dL Nitrite Urine Positive Negative Leukocyte Esterase Urine Large (3+) Negative RBC Urine >20 0-2 /HPF WBC Urine >50 0-5 /HPF Squamous Epithelial Cell Urine 0-2 0-2 /HPF Bacteria Urine 4+ None Seen Hyaline Casts Urine 0-2 0-2 /LPF Glucose, finger stick Reviewed date:06/23/2024 01:57:23 PM Interpretation: Performing Lab: Notes/Report: Value 167 Glucose, finger stick Reviewed date:10/31/2024 02:33:50 PM Interpretation: Performing Lab: Notes/Report: Value 121 Glucose, finger stick Reviewed date:01/04/2025 10:42:38 AM Interpretation: Performing Lab: Notes/Report: Value 142 Comprehensive Met. Panel Reviewed date:04/06/2025 12:50:34 PM Interpretation: Performing Lab:[facility], [address] [place] [phone] Notes/Report: Sodium 143 135-145 mmol/L Potassium 4.2 3.3-5.1 mmol/L Chloride 106 96-108 mmol/L Carbon Dioxide 27 22-29 mmol/L Anion Gap 14 12-20 Blood Urea Nitrogen 28 9-16 mg/dL Creatinine 0.94 0.5-1.4 mg/dL Estimated Glomerular Filt Rate > 60 Chronic Kidney Disease: Estimated GFR < 60 mL/min/1.73m2 Severe Kidney Disease: Estimated GFR < 15 mL/min/1.73m2 Glucose Random 126 60-115 mg/dL Calcium 9.3 8.4-10.2 mg/dL Bilirubin Total 0.5 0.0-1.0 mg/dL Aspartate Amino Transferase 38 5-37 U/L Alanine Aminotransferase 15 0-40 U/L Total Protein 6.9 6.5-8.0 g/dL Albumin Level 4.1 3.5-5.0 g/dL Alkaline Phosphatase 98 39-117 U/L Urine Culture Reviewed date:04/09/2025 12:34:48 PM Interpretation: Performing Lab:[facility], [address] [place] [phone] Notes/Report: O:ESCCOL Escherichia coli Urine Culture Quant Urine Culture > 100,000 cfu/mL Ampicillin 4 Cefazolin (Urine) <=1 Cefepime <=0.12 Ceftriaxone <=0.25 Ciprofloxacin <=0.06 Gentamicin <=1 Nitrofurantoin <=16 Trimethoprim/Sulfamethoxaz ole <=20 Reason For Referral No Information Medications Medication SIG (Take, Route, Frequency, Duration) Notes Start Date End Date Status Digoxin 125 MCG TAKE 1 TABLET BY SERVANDO TH EVERY DAY FOR 90 DAYS Active Furosemide 20 MG 1 tablet once a day Orally Once a day Active Eliquis 5 MG TAKE 1 TABLET BY SERVANDO TH TWICE A DAY DIRECTED Active Metoprolol Succinate ER 50 MG 1 tablet Orally Once a day Active Tamsulosin HCl 0.4 MG TAKE 1 CAPSULE BY MOUTH EVERY DAY Active Cipro 500 MG 1 tablet Orally ever y 12 hrs for 5 days 04/09/2025 Active Pantoprazole Sodium 40 MG TAKE 1 TABLET BY MOUTH TWICE A DAY for 90 Active Atorvastatin Calcium 40 MG TAKE 1 TABLET BY MOUTH EVERY DAY Active metFORMIN HCl 500 MG TAKE 2 TABLETS BY M OUTH TWICE A DAY Active Immunizations Vaccine Route Administration Date Status Comme nts Flu Vaccine Unknown 03/18/2012 Administered PPSV23 (Pnemovax) IM Intramuscular 10/04/2012 Administered Flu Vaccine IM Intramuscular 04/17/2013 Administered Prevnar 13 IM Intramuscular 04/27/2013 Administered Flu Vaccine Unknown 03/05/2014 Administered [facility] Flu Vaccine IM Intramuscular 02/05/2015 Administered Fluarix Quadrivalent IM Intramuscular 02/24/2016 Administered Fluarix Quadrivalent IM Intramuscular 02/09/2017 Administered PPSV23 (Pnemovax) IM Intramuscular 01/04/2018 Administered Fluarix Quadrivalent Unknown 04/01/2018 Administered [facility] Fluarix Quadrivalent IM Intramuscular 01/24/2019 Administered Fluarix Quadrivalent IM Intramuscular 03/25/2020 Administered Covid Vaccine Unknown 07/18/2020 Administered Covid Vaccine Unknown 08/09/2020 Administered Influenza High Dose IM Intramuscular 01/31/2021 Administer ed Influenza High Dose IM Intramuscular 02/19/2022 Administer ed Fluarix Quadrivalent IM Intramuscular 02/02/2023 Administered Influenza High Dose IM Intramuscular 03/13/2024 Administer ed Influenza High Dose IM Intramuscular 03/01/2025 Administer ed Social History Tobacco Use: Social History Observation [...] Problem Status W/U Status Risk Notes Problem 024265706 Thrombocytopenia (D69.6) Active confirmed Problem 31199045 Prostatism (N40.0) Active confirmed Problem 5298585 Primary insomnia (F51.01) Active confirmed Problem 426643227 Ischemic cardiom yopathy (I25.5) Active confirmed Problem 555912993 Heart failure, unspecified (I50.9) Active confirmed Problem 6776828 Arthritis (M19.90) Active confirmed Problem Disorder of lumbar disc (472780836) Lumbar disc disease (M51.9) Active confirmed Problem 21235688 Type 2 diabetes mellitus without complication (E11.9) Active confirmed Problem 298112472 Non morbid obesi ty due to excess calories (E66.09) Active confirmed Problem 852824409 Acute systolic congestive heart failure (I50.21) Active confirmed Problem 07713049 PVCs (premature ventricular contractions) (I49.3) Active confirmed Problem 96370259 Rheumatoid arthr itis (M06.9) Active confirmed Problem 713719018 History of myoca rdial infarction (I25.2) Active confirmed Problem 288079843 Claudication (I73.9) Active confirmed Problem 67006245 Sciatica of righ t side (M54.31) Active confirmed Problem 812224712 S/P drug eluting coronary stent placement (Z95.5) Active confirmed Problem 522980116 Pure hypercholesterolemia (E78.00) Active confirmed Problem 606713765 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) Active confirmed Problem 64490226 Pulmonary fibros is (J84.10) Active confirmed Problem 996341488 Chronic systolic heart failure (I50.22) Active confirmed Problem Microcytic anemia (074807217) Microcytic anemia (D50.9) Active confirmed Problem 889207974 History of infer ior wall myocardial infarction (I25.2) Active confirmed Problem 586999511 Abnormal chest x ray (R93.89) Active confirmed Problem 136299478 Persistent atria l fibrillation (I48.19) Active confirmed Problem 35384440 Cervical cord compression with myelopathy (G95.20) Active confirmed Problem 676451727 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) Active confirmed Problem 641912691 Bladder rupture (N32.89) Active confirmed Problem 54600035 Duodenal ulcer hemorrhage (K26.4) Active confirmed Problem 642290799 Hx pulmonary emb olism (Z86.711) Active confirmed Problem 868660816 Asymptomatic cholelithiasis (K80.20) Active confirmed Vital Signs Blood pressure diastolic 48 mm Hg 04/13/2025 alecia ght is down 4 pounds since 01-04-25 Height 70 in 04/13/2025 weight is down 4 pounds since 01-04-25 Blood pressure systolic 92 mm Hg 04/13/2025 weig ht is down 4 pounds since 01-04-25 Weight 166 lbs 04/13/2025 weight is down 4 pounds since 01-04-25 BMI 23.82 kg/m2 04/13/2025 weight is down 4 pounds since 01-04-25 Encounters Encounter Location Date Provider Diagnosis Mihir Mccall MD [address] [place] [id number] 03/01/2025 Mihir Mccall Encounter for administration of vaccine Z23 Mihir Mccall MD [address] [place] [id number] 04/06/2025 Mihir Mccall Type 2 diabetes julian itus without complication E11.9 ; Acute systolic congestive heart failure I50.21 ; Pure hypercholesterolemia E78.00 and Prostatism N40.0 Mihir Mccall MD [address] [place] [id number] 04/13/2025 Mihir Mccall Hematuria R31.9 ; Microcytic anemia D50.9 ; Type 2 diabetes mellitus without complication E11.9 ; 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 ; Pure hypercholesterolemia E78.00 ; Prostatism N40.0 ; Persistent atrial fibrillation I48.19 ; Chronic systolic heart failure I50.22 ; Colon cancer screening Z12.11 and Depression screening Z13.31 Mihir Mccall MD [address] [place] [id number] 06/23/2024 Mihir Mccall Type 2 diabetes julian itus without complication E11.9 and Heart failure, unspecified I50.9 Mihir Mccall MD [address] [place] [id number] 10/31/2024 Mihir Mccall Type 2 diabetes julian itus without complication E11.9 ; Weight loss R63.4 ; Acute systolic congestive heart failure I50.21 and Persistent atrial fibrillation I48.19 Mihir Mccall MD [address] [place] [id number] 01/04/2025 Mihir Mccall Type 2 diabetes julian itus without complication E11.9 ; Acute systolic congestive heart failure I50.21 and Pure hypercholesterolemia E78.00 Mihir Mccall MD [address] [place] [id number] 09/07/2024 Mihir Mccall MD [address] [place] [address] [id number] 04/09/2025 Mihir Mccall Assessments Encounter Date Diagnosis (ICD Code) Assessment Notes Treatment Notes Treatment Clinical Notes Section Notes 03/01/2025 Encounter for administration of vaccine (ICD-10 - Z23) 04/06/2025 Type 2 diabetes mellitus without complication (ICD-10 - E11.9) 04/13/2025 Hematuria (ICD-10 - R31.9) need notes from dr turner/ request will be sent z 04/13/2025 Microcytic anemia (ICD-10 - D50.9) will continnue to monitor z 06/23/2024 Type 2 diabetes mellitus without complication (ICD-10 - E11.9) doing well, will continue current regiment 06/23/2024 Heart failure, unspecified (ICD-10 - I50.9) seems to be stable from the perspective of his heart failure. is having a lot of trouble living by himself without the support of his who but has family around. especially his grandson. 10/31/2024 Type 2 diabetes mellitus without complication (ICD-10 - E11.9) well controlled 10/31/2024 Weight loss (ICD-10 - R63.4) eating a lot. had a big meal last night. 01/04/2025 Type 2 diabetes mellitus without complication (ICD-10 - E11.9) well controlled on present med, will continue current regiment 04/06/2025 Acute systolic congestive heart failure (ICD-10 - I50.21) 04/13/2025 Type 2 diabetes mellitus without complication (ICD-10 - E11.9) doing well with no complaints, will continue current regiment z 10/31/2024 Acute systolic congestive heart failure (ICD-10 - I50.21) stable 01/04/2025 Acute systolic congestive heart failure (ICD-10 - I50.21) doing well on present meds, will continue current regiment 04/06/2025 Pure hypercholesterolemia (ICD-10 - E78.00) 04/13/2025 Malignant neoplasm o f posterior wall of urinary bladder (ICD-10 - C67.4) had recent cystoscopy z 10/31/2024 Persistent atrial fibrillation (ICD-10 - I48.19) is thinking of getting a watchman/ need notes from dr bean/ will send for records 01/04/2025 Pure hypercholesterolemia (ICD-10 - E78.00) stable, will continue current regiment 04/06/2025 Prostatism (ICD-10 - N40.0) 04/13/2025 Pure hypercholesterolemia (ICD-10 - E78.00) stable, [...] Z13.31) negative screen z Plan Of Treatment Pending Test Test Name Order Date Electrocardiogram (EKG) 01/21/2018 Occult Blood, Stool, Guaiac 04/13/2025 MRI CERVICAL SPINE NO CONTRAST 1 XR CHEST 2 VIEW PA & LAT 06/21/2020 CBC (INCLUDES DIFF/PLT) 04/17/2013 Complete Blood Count Auto Diff 5 Comprehensive [place]. Panel Fast 5 IRON PROFILE 04/13/2025 CT chest wo con 01/27/2024 CT chest wo con 04/21/2021 XR chest 2V 07/16/2022 Next Appt Details Provider Name:Mihir hemphill, 05/01/2025 10:15:00 AM, [address] [place] [address], [address] [place] [address], [phone], Provider Name:Mihir hemphill, 10/04/2025 07:15:00 AM, [address] [place] [address], Suite [facility], [place], [place], [phone], Provider Name:Mihir hemphill, 10/11/2025 10:15:00 AM, [address] [place] [address], Suite [facility], [place], [place], [phone], Provider Name:Mihir hemphill, 04/16/2026 07:15:00 AM, [address], [address], [place], [place], [phone], Provider Name:Mihirserg Phillips ier, 04/23/2026 09:30:00 AM, [address] [facility] [address], [address], [place], [place], [phone], Insurance Providers Payer Name Payer Address Payer Phone Subscriber Number Group Number Insured Name Patient Relationship to Insured Coverage Start Date Coverage End Date [employer] [address] [place] [address] [id number] Adonay Méndez Self - patient is the insured [facility] [address] [place] [address] [id number] Adonay Méndez Self - patient is the insured Medical (General) History Medical History History ICD Code diabetes mellitus colonoscopy 2007 , 09/26/2010 due in 2016; colonoscopy done 08/29/15 w/dr easley - repeat [address] 2011 with no change poba 2016 plain old balloon angioplasty Lung nodule had been folowed years ago Surgical History Surgery Date(Month/Year) colon resection for benign lesion
--- OUTSIDE RECORDS SUMMARY | 2025-04-13 13:31 | XMS_ITS | Patient Health Record ---
Author Organization [facility] Address [address] [place] [address] Care Team Providers Care Biztalk Architect Name Role Phone Stefany CONLEY, Mihir Primary Care Provider Terri Bettencourt Jr, Jose Unavailable Reason For Referral No Information Medications Medication SIG (Take, Route, Frequency, Duration) Notes Start Date End Date Status Naproxen 500 MG Tablet 1 tablet Orally o nce or twice a day Active metFORMIN HCl 500 MG Tablet 1 tablet with meals Orally Twice a day Active Social History Social History Additional Details Category Social Info Options Details Miscellaneous: Marital status: Occupation: retired Section Notes: Very occasional alcohol; non smoker Problems Problem Type SNOMED Code ICD Code Onset Dates Problem Status W/U Status Risk Notes Problem Screening for malignant neoplasm of colon (766564179) Encounter for screening for malignant neoplasm of colon (Z12.11) Active confirmed Problem History of adenomatous polyp of colon (054150101) History of adenomatous polyp of colon (Z86.010) Active confirmed Problem Screening for malignant neoplasm of rectum (715405069) Encounter for screening for malignant neoplasm of rectum (Z12.12) Active confirmed Problem Altered bowel function (21208765) Change in bowel function (R19.4) Active confirmed Plan Of Treatment Future Test Test Name Order Date COLONOSCOPY 06/26/2015 Insurance Providers Payer Name Payer Address Payer Phone Subscriber Number Group Number Insured Name Patient Relationship to Insured Coverage Start Date Coverage End Date MEDICARE OF [place] [address] [facility] [place] [address] [id number] ELMA LYNNE Self - patient is the insured [facility] [address] [place] [address] [id number] ELMA LYNNE Self - patient is the insured Medical (General) History Medical History History ICD Code NIDDM Denies VA,,CVA,Lung disease,renal diseas e 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 Weaver--the lesion could not be removed entirely endoscopically and it was resected surgically as below---F/U colonoscopy in 09/[address] Weaver Hgiillxft54/2015--treated with temporary course of prednisone and NSAIDs SBO in 2013--no surgery Surgical History Surgery Date(Month/Year) appendectomy-age 14 back surgery lumbar Sigmoid lesion [place] [facility]12 days later had a SBO and had surgery at [facility] with Dr. Weaver--resection of 56cm of SI 07/03/2008
--- OUTSIDE RECORDS SUMMARY | 2025-04-13 13:31 | XMS_ITS | Clinical Summary ---
Author Organization [facility] Address [address] [place] [address] Phone Care Team Providers Care Audio Recording Engineer Name Role Phone Unavailable Primary Care Provider [...] age to complete this topic Insurance Medicare [facility] Medicare [facility]
--- OUTSIDE RECORDS SUMMARY | 2025-04-13 13:32 | XMS_ITS | Encounter Summary ---
Author Organization [facility] Address [address] [place] [address] Phone Care Team Providers Care Storage Brine Worker Name Role Phone Mihir Mccall MD Primary Care Provider Heather Perry MD Unavailable [phone] Ramírez Morales MD, MPH Unavailable [phone] Encounter Details Date Type Department Care Team (Latest Contact Info) Description 04/27/2017 Transcribe Orders [facility] Echocardiography [address] [place] [address] Eve Rojas [address] [place] [address] [email or web address] Atrial fibrillation, unspecified type (Primary Dx) Social History Tobacco Use Types Packs/Day Years [...] Orientation Straight 04/28/2022 5: 36 PM EST documented as of this encounter Plan of Treatment Not on file documented as of this encounter Procedures Procedure Name Priority Date/Time Associated Diagnosis Comments ECG 12-LEAD Routine 04/27/2017 8:48 AM EST Atrial fibrillation, unspecified type ECG 12-LEAD Routine 04/27/2017 8:24 AM EST Atrial fibrillation, unspecified type documented in this encounter Results * ECG 12 lead (04/27/2017 8:48 AM EST) Ventricular Rate EKG/MIN 76 BPM [facility] Atrial Rate 76 BPM [facility] MI Interval 204 ms [facility] QRS Duration 88 ms [facility] QT Interval 378 ms [facility] QTC Interval 425 ms [facility] P [place] 55 degrees [facility] R Wave [place] 46 degrees [facility] T Wave [place] 52 degrees [facility] 04/27/2017 8:48 AM EST Narrative [facility] - 04/28/2017 7:58 AM EST age and gender ECG analysis Normal sinus rhythm Low voltage QRS, consider pulmonary disease, pericardial effusion, or normal variant Inferior myocardial infarction (cited on or before 27-APR-2017) Possible Anterolateral myocardial infarction (cited on or before 27-APR-2017) Abnormal ECG When compared with ECG of 27-APR-2017 08:24, (unconfirmed) Sinus rhythm has replaced Atrial fibrillation us Eduarda Luke MD ECG ORDERABLES Final Resu lt [facility] * ECG 12 lead (04/27/2017 8:24 AM EST) Ventricular Rate EKG/MIN 94 BPM [facility] QRS Duration 86 ms [facility] QT Interval 346 ms [facility] QTC Interval 432 ms [facility] R Wave [place] -4 degrees [facility] T Wave [place] 35 degrees [facility] 04/27/2017 8:24 AM EST Narrative [facility] - 04/28/2017 7:58 AM EST age and gender ECG analysis Atrial fibrillation Low voltage QRS, consider pulmonary disease, pericardial effusion, or normal variant Inferior myocardial infarction , age undetermined Possible Anterolateral myocardial infarction , age undetermined Abnormal ECG No previous ECGs available us Eduarda Luke MD ECG ORDERABLES Final Resu lt [facility] documented in this encounter Visit Diagnoses Diagnosis Atrial fibrillation, unspecified type- Primary documented in this encounter Care Teams Storage Brine Worker Relationship Specialty Start Date End Date Mihir Mccall MD [address] [place] [address] [place] [address] PCP - General 11/21/13 Heather Perry MD [address] [place] [id number] [email or web address] 05/01/22 Ramírez Morales MD, MPH [address] [place] [email or web address] 05/01/22 documented as of this encounter Additional Source Comments The information contained in this document represents components of the legal health record. It is not the complete legal health record.[facility]
--- OUTSIDE RECORDS SUMMARY | 2025-04-13 13:32 | XMS_ITS | Encounter Summary ---
Author Organization [facility] Address [address] [place] [address] Phone Care Team Providers Care Cargo Bracer Name Role Phone Mihir Mccall MD Primary Care Provider Heather Perry MD Unavailable [phone] Ramírez Morales MD, MPH Unavailable [phone] Encounter Details Date Type Department Care Team (Late st Contact Info) Description 04/20/2017 Ancillary Orders [facility] [address] [facility] [address] [place] [id number] Eduarda Luke MD Atrial fibrillation, unspecified type Social History Tobacco Use Types Packs/Day Years Used Date Smoking Tobacco: Never Assessed Sex and Gender Information Value Date Recorded Sex Assigned at Male 04/28/2022 5:36 PM EST Legal Sex Male 6:40 PM EST Gender Identity Male 04/28/2022 5:36 PM EST Sexual Orientation Straight 04/28/2022 5: 36 PM EST documented as of this encounter Plan of Treatment Not on file documented as of this encounter Results * CARDIOVERSION (04/27/2017 8:10 AM EST) Anatomical Region Laterality Modality Other Narrative 04/27/2017 3:32 PM EST Cardioversion DATE: 04/27/2017 TIME: 08:30 UNIVERSAL PROTOCOL: Consent obtained: Yes Time out: Immediately prior to the procedure a time out was called A time out verifies correct patient, procedure, equipment, client support representative and site/side marked as required. SEDATION: Patient sedated?: Yes Please see separate sedation documentation. PRE-PROCEDURE: Cardioversion basis: elective Pre-procedure rhythm: atrial fibrillation Electrodes: pads No internal ICD shock Electrodes placement: anterior-posterior ATTEMPT DETAILS: Number of attempts: 1 Attempt 1 mode: synchronous Attempt 1 waveform: biphasic Manual pressure applied?: No Attempt 1 shock (Joules): 200 Attempt 1 outcome: conversion to normal sinus rhythm POST-PROCEDURE: Post-procedure rhythm: normal sinus rhythm Patient tolerance: Patient tolerated the procedure well with no immediate complications us Eduarda Luke MD [facility] ORDERA BLES Final Result documented in this encounter Visit Diagnoses Diagnosis Atrial fibrillation, unspecified type Atrial fibrillation, unspecified type documented in this encounter Care Teams Cargo Bracer Relationship Specialty Start Date End Date Mihir Mccall MD [address] [place] [address] [place] [address] PCP - General 11/21/13 Heather Perry MD [address] [place] [id number] [email or web address] 05/01/22 Ramírez Morales MD, MPH [address] [place] [id number] [email or web address] Urology 05/01/22 documented as of this encounter Additional Source Comments The information contained in this document represents components of the legal health record. It is not the complete legal health record.[facility]
--- OUTSIDE RECORDS SUMMARY | 2025-04-13 13:32 | XMS_ITS | Clinical Summary ---
Author Organization [address] [place] [address] Address [address] [place] [address] Phone Care Team Providers Care Dance Studio Manager Name Role Phone Nilson Mccall MD Primary Care Provider [phone] Allergies Active Allergy Reactions Criticality Noted Date [...] diuretic. Continue current treatment plan Arthritis, rheumatoid ([facility] V24, [facility] V28) 06/06/2020 Claudication ([facility] V24) 06/06/2020 Ischemic cardiomyopathy 06/06/2020 Overview (05/05/2024): [...] obesity due to excess calories 2020 Old DC (myocardial infarction) 06/06/2020 Persistent atrial fibrillation ([facility] V24, [facility] V28) 06/06/2020 Overview (05/05/2024): anticoagulated with apixaban [...] Continue statin at current dose. Thrombocytopenia, unspecified ([facility] V24) 05/24 Type II diabetes mellitus ([facility] V24, [facility] V28) 06/06/2020 Resolved Problems Problem Noted Date Diagnosed Date Resolved Date Cardiomyopathy ([facility] V24, [facility] V28) 01/01/2023 05/05/2024 Encounters Date Type Department Care Team Description 03/21/2025 Telephone [facility] [address] [place] [address] Jose Alberto Hunt MD 01/31/2025 Telephone [facility] [address] [place] [address] Kendra Bowers NP 01/18/2025 2:30 PM EDT Ancillary Procedure [facility] [address] [place] [address] Ischemic cardiomyopathy from Last 3 Months Immunizations Immunization Administration Dates Next Due Influenza trivalent, 0.5mL, preservative free (Fluarix; FluLaval; Fluzone) ages 6mo and older (Afluria) 3 years and older 03/25/2020,01/24/2019,04/01/2018,02/09,02/24/2016 Pneumococcal polysaccharide 23 valent (Pneumovax 23) 2yo and older 01/04/2018 Surgical History Surgery Date Site/Laterality Comments CORONARY STENT PLACEMENT 06/06/2020 Medical History Medical History Date Comments Cardiomyopathy ([facility] V24, [facility] V28) 2022 Hypertension 06/23/2021 Diabetes mellitus ([facility] V24, [facility] V28) Type 2 Pure hypercholesterolemia 06/06/2020 PVC (premature ventricular contraction) 06/06/19 21 Atrial fibrillation ([facility] V24, [facility] V28) 0 06/06/2020 Claudication ([facility] V24) 06/06/2020 Old DC (myocardial infarction) 06/06/2020 Family History Medical History Relation Name Comments Alzheimer's disease Father Diabetes Mother Relation Name Status Comments Father Mother Social History Tobacco Use Types Packs/Day Years Used Date Smoking Tobacco: Former Cigarettes 0 Q uit: 1958 Passive Smoke Exposure: Never [...] Sign Reading Time Taken Comments Blood Pressure 86/58 01/18/2025 2:41 PM EDT Pulse 90 05/05/2024 8:38 AM EST Temperature - - Respiratory Rate - - Oxygen Saturation 96% 05/05/2024 8:38 AM EST Inhaled Oxygen Concentration - - Weight 78 kg (172 lb) 01/18/2025 2:41 PM EDT Height 177.8 cm (5' 10 ) 01/18/2025 2:41 PM EDT Body Mass Index 24.68 01/18/2025 2:41 PM EDT Plan of Treatment Upcoming Encounters Date Type Department Care Team (Late st Contact Info) Description 04/23/2025 3:00 PM EST Office Visit [facility] [address] [facility] [address] [place] [phone] Jose Alberto Hunt MD [address] [place] [address] [place] [phone] Health Maintenance Due Date Last Done Comments [...] Diabetes: Blood Sugar Control Test (HGBA1C) 05/09/2022 Depression Screening 05/24/2024 Diabetes: Annual GFR (Glomerular Filtration Rate) 12/14/2024 12/15/2023, 12/15/2023, 10/06/2018, Additional history exists Hypertension/CHF/CAD Annual BMP Blood Test 12/14/2024 12/15/2023, 12/15/2023, 10/06/2018, Additional history exists COVID-19 Vaccine ( season) 2025 08/09/2020, 07/18/2020 Influenza Vaccine (#1) 2025 , 02/02/2023, 02/19/2022, [...] Procedure Name Priority Date/Time Associated Diagnosis Comments TRANSTHORACIC ECHOCARDIOGRAM (TTE) COMPLETE W/ CONTRAST Routine 01/18/2025 3:30 PM EDT Ischemic cardiomyopathy ANNUAL BMP BLOOD TEST Routine 12/15/2023 LIPID PANEL Routine 12/12/2021 from Last 3 Months or Most Recently Relevant to Health Maintenance Results * (ABNORMAL) TRANSTHORACIC ECHOCARDIOGRAM (TTE) COMPLETE W/ CONTRAST (01/18/2025 3:30 PM EDT) Left Atrium Minor [place] 5.5 cm CV PACS Left Atrium Major [place] 6.0 cm CV PACS LA Area Sys (A2C) 21 cm2 CV PACS LA Area Sys (A4C) 18 cm2 CV PACS LA Volume (BP) 52 mL CV PACS RA Area 15.6 cm2 CV PACS RA 2D Volume 41 mL CV PACS Aortic Sinus Valsalva 3.7 cm CV PACS Ascending Aorta 3.6 cm CV PACS IVSD 1.1(A) 0.6 - 1.0 cm CV PACS LVIDD 5.6 4.2 - 5.8 cm CV PACS LVIDS 4.2(A) 2.5 - 4.0 cm CV PACS LVOT Diameter 2.1 cm CV PACS LVPWD 1.1(A) 0.6 - 1.0 cm CV PACS MV E' Tissue Velocity Lateral 8 cm/s CV PACS MV E' Tissue Velocity Septal 4 cm/s CV PACS LVOT Area 3.5 cm2 CV PACS MV Peak E Mike 1.20 m/s CV PACS RV Diastolic Basal Dimension 3.1 2.5 - 4.1 cm CV PACS RV S' 11 cm/s CV PACS TAPSE 12 mm CV PACS TR Peak Velocity 3.45 m/s CV PACS TR Peak Gradient 48 mmHg CV PACS E/E' Ratio Septal 30 CV PACS E/E' Ratio Averaged 23 CV PACS Relative Wall Thickness ratio 0.39 CV PACS FS 25 % CV PACS LV Mass 2D 249 g CV PACS Ascending Aorta Index 1.84 cm/m2 CV PACS RA 2D Volume Index 21 mL/m2 CV PACS LVIDD Index 2.86 cm/m2 CV PACS LVIDS Index 2.14 cm/m2 CV PACS E/E' Ratio Lateral 15 CV PACS LA Volume Index (BP) 27 mL/m2 CV PACS LV Mass Index 2D 127 g/m2 CV PACS BSA 1.96 m2 CV PACS Right Ventricular Peak Systolic Pressure 51 mmHg CV PACS Est. RA Pressure 3 mmHg CV PACS Anatomical Region Laterality Modality Ultrasound Narrative 01/29/2025 5:51 PM EDT Left ventricle cavity size is normal. Left ventricular systolic function is mildly decreased with an ejection fraction of 40-45%. Mild LV global hypokinesis is present. Left ventricle mild hypertrophy. Right ventricle cavity is normal. Right ventricular systolic function is low normal. The atria are normal in size. No hemodynamically significant valve disease. Compared to prior from 2020, LVEF appears similar. Left Ventricle Left ventricle cavity size is normal. There is mild hypertrophy. Systolic function is mildly decreased with an ejection fraction of 40-45%. Mild global LV hypokinesis is present with apical akinesis. Unable to assess diastolic function due to arrhythmia. Right Ventricle Right ventricle cavity appears normal. Systolic function is low normal. Left Atrium Left atrium cavity size is normal. Right Atrium Right atrium cavity is normal. IVC/SVC Inferior vena cava structure is normal. RA pressures is estimated to be 3 mmHg (IVC diameter <21 mm and decreases >50% during inspiration). Mitral Valve The leaflets are thickened. There is annular calcification. There is mild regurgitation. There is no evidence of mitral valve stenosis. Tricuspid Valve The leaflets exhibit normal excursion. There is mild to moderate regurgitation. The RVSP is estimated at 51 mmHg. Aortic Valve The aortic valve is trileaflet. The leaflets are mildly thickened. There is no regurgitation or stenosis. Pulmonic Valve Pulmonic valve structure is normal. There is trace pulmonic valve regurgitation. Ascending Aorta The aorta appears normal in size. Pericardium There is no pericardial effusion. Study Details Overall the study quality was adequate. Definity contrast was given to enhance imaging. Study was difficult due to: poor endocardial visualization. Result [facility] Kendra Bowers NP CV ECHO PROCEDURES Final Result * Annual BMP Blood Test (12/15/2023) Annual [facility] Blood Test abstracted Result [facility] Historical Provider HEALTH MAINTENANCE Final Result * [...] Recently Relevant to Health Maintenance [facility] Care Teams Dance Studio Manager Relationship Specialty Start Date End Date Nilson Mccall MD [address] [place] [address] PCP - General Internal Medicine 04/10/25
--- OUTSIDE RECORDS SUMMARY | 2025-04-13 13:32 | XMS_ITS | Clinical Summary ---
Author Organization [facility] Address [address] [address] Phone Care Team Providers Care Door Repairer Bus Name Role Phone Mihir Mccall MD Primary Care Provider Heather Perry MD Unavailable [phone] Ramírez Morales MD, MPH Unavailable [phone] Allergies No known active allergies Medications apixaban [...] 05/22/2020 05/22/2019, 09/21, 04/07/2018, Additional history exists INFLUENZA VACCINE (#1) 2024 2, 02/19/2022, 01/31/2021, Additional history exists COVID-19 VACCINE ( - 2024- season) 2025 08/09/2020, 07/18/2020 PNEUMOCOCCAL VACCINES (50+ years) Completed 01/04/2018, 10/01/2016 HEPATITIS A VACCINES Aged Out No long er eligible based on patient's age to complete this topic HIB VACCINES Aged Out No longer eligi ble based on patient's age to complete this topic IPV VACCINES Aged Out No longer eligi ble [...] Date/Time Associated Diagnosis Comments BASIC METABOLIC PANEL (BMP) Routine 05/22/2019 3:55 PM EST Dyspnea on exertion Dilated cardiomyopathy Chronic systolic congestive heart failure from Last 3 Months or Most Recently Relevant to Health Maintenance Results * (ABNORMAL) Basic metabolic panel (05/22/2019 3:55 PM EST) SODIUM 141 136 - 145 mmol/L [address] [place] [address] LAB POTASSIUM 3.8 3.4 - 5.1 mmol/L [address] [place] [address] LAB CHLORIDE 101 98 - 107 mmol/L [address] [place] [address] LAB CO2 26 22 - 31 mmol/L [address] [place] [address] LAB BUN 20 6 - 23 mg/dL [address] [place] [address] LAB CREATININE 0.79 0.50 - 1.20 mg/dL [address] [place] [address] LAB GLUCOSE 174(H) 70 - 100 mg/dL [address] [place] [address] LAB CALCIUM 9.6 8.8 - 10.7 mg/dL [address] [place] [address] LAB EGFR 87 >59 mL/min/1.[address] [place] [address] LAB Comment:If patient is black, multiply result by 1.159. Estimated glomerular filtration rate calculated using the CKD-EPI equation. ANION GAP 14 7 - 17 mmol/L [address] [place] [address] LAB 05/22/2019 3:55 PM EST 05/22/2019 4:39 PM EST us Edwin Delgado MD, MPH LAB BLOOD BKR ORDERABLES Fi nal Result [address] [place] [phone] from Last 3 Months or Most Recently Relevant to Health Maintenance Insurance MEDICARE PART A & B [facility] SUPPLEMENT MEDICARE PART A & B [employer] MEDICARE SUPPLEMENT MEDICARE PART A & B [employer] MEDICARE SUPPLEMENT MEDICARE PART A & B Member Subscriber Plan / Payer (Ef fective 2006-Present) Name:Adonay Méndez Member ID:[id number] Relation to Subscriber:Self Name:Adonay Méndez Subscriber ID:[id number] Payer ID:[id number] Group ID:Not on file Type:Medicare Address: [facility] [employer] [facility] [employer] [facility] [address] [facility] MEDICARE SUPPLEMENT MEDICARE PART A & [facility] MED[facility] SUPPLEMENT MEDICARE PART A & [facility] MEDICARE SUPPLEMENT MEDICARE PART A & B [employer] MEDICARE SUPPLEMENT MEDICARE PART A & [facility] MEDICARE SUPPLEMENT MEDICARE PART A & B [employer] MEDICARE SUPPLEMENT MEDICARE PART A & B [employer] MEDICARE SUPPLEMENT Care Teams Door Repairer Bus Relationship Specialty Start Date End Date Mihir Mccall MD [address] [place] [address] [place] [address] PCP - General 11/21/13 Heather Perry MD [address] [place] [id number] [email or web address] 05/01/22 Ramírez Morales MD, MPH [address] [place] [id number] [email or web address] Urology 05/01/22 Additional Source Comments The information contained in this document represents components of the legal health record. It is not the complete legal health record.[facility]
[2025-04-13 13:39] LABS: Hematocrit 33.6 % (42.0-52.0); Hemoglobin 9.1 g/dl (14.0-18.0); Imm Gran Abs Auto 0.02 X10*3/uL (0.00-0.03); Imm Gran Pct Auto 0.2 % (0.0-0.4); Iron 21 mcg/dL (45-160); Lymphocytes Absolute Auto 1.5 X10*3/uL (1.2-4.9); MANUAL DIFF FLAG SCAN; Mean Corpuscular HGB Conc 27.1 g/dl (31.0-36.0); Mean Corpuscular Hemoglobin 18.8 pg (27.0-33.0); Mean Corpuscular Volume 69.3 fL (80.0-98.0); NRBC Abs Auto 0.000 X10*3/uL (0.0-0.012); NRBC Pct Auto 0.0 /100WBC (0.0-0.2); PLT CLUMP 1; Percent Iron Saturation 6 % (15-50); Red Blood Count 4.85 X10*6/uL (4.60-5.80); SCAN SMEAR FLAG 1; Total Iron Binding Capacity 367 mcg/dL (228-428); Unsaturated Iron Binding 346 ug/dL
[2025-04-13 13:44] LABS: White Blood Count 8.1 X10*3/uL (4.8-10.8)
[2025-04-13 14:11] LABS: Platelet Count 170 X10*3/uL (160-400)
== END 2025-04-13 13:15 | disposition home or self-care (01) ==
LOC: HO.LNP 13:14
PROVIDERS: Visit Provider Internal Medicine
DX: R31.9 Hematuria, unspecified (principal)
CPT/HCPCS: 83540; 85025